=== PATIENT | female | born 1945 | race Caucasian/White ===

== ENCOUNTER 2019-12-26 22:27 | Inpatient (IN) | payer MEDICARE, SELFPAY ==
--- NOTE | ~2019-12-26 | XR_ITS ---
EXAMINATION: XR chest 2V DATE: 12/29/2019 10:52 INDICATION: Pneumonia TECHNIQUE: frontal and lateral views of the chest were obtained. COMPARISON: Chest radiograph dated 12/26/[address] dated 12/27/2019 FINDINGS: Bronchial wall thickening and mild opacities at the posterior lung bases. No pulmonary edema, pleural effusion or pneumothorax. The cardiomediastinal silhouette is normal. Atherosclerotic aorta. Mild th oracic kyphosis with chronic mild anterior wedging of a few mid thoracic vertebral bodies. IMPRESSION: 1. Bronchial wall thickening and mild opacities in the posterior lower lung zones consistent with pne umonia. Reviewed, dictated and finalized at location A. IMPRESSION: 1. Bronchial wall thickening and mild opacities in the posterior lower lung zon es consistent with pneumonia.
--- NOTE | ~2019-12-26 | XR_ITS ---
EXAMINATION: XR chest 1V portable DATE: 12/26/2019 23:35 INDICATION: Shortness of breath. Cough. TECHNIQUE: A single frontal view of the chest was obtained. COMPARISON: Chest 2 views 06/15/2012, chest CT 02/21/2013 FINDINGS: The patient is rotated to her left. Equipment overlies the left upper chest. Calcified left lung nodules are consistent with old granulomatous disease. There is mild atelectasis in left lower lung zone. No pleural effusion or pneumothorax. The heart size is normal. IMPRESSION: 1. Mild atelectasis in left lower lung zone. Reviewed, dictated and finalized at location A.
--- NOTE | ~2019-12-26 | CT_ITS ---
EXAMINATION: CT chest wo con DATE: 12/27/2019 01:33 INDICATION: Shortness of breath and cough TECHNIQUE: Computed tomography (CT) of the chest was performed without intravenous contrast. The dose -length product (DLP) was 150.74 mGy-cm. Automated exposure control and iterative reconstruction tech [employer] were employed. COMPARISON: 08/06/2012 FINDINGS: There are subtle patchy bilateral airspace opacities, particularly in the lower lobes. A fe w areas of bronchial wall thickening with groundglass opacity are present in the upper lobes. There i s a 5 mm groundglass nodule of the lingula. There is mild emphysema. No pleural effusion or pneumotho rax is identified. Calcified pulmonary nodules and calcified bilateral hilar and mediastinal lymph no rj are consistent with old granulomatous disease. The heart size is normal. There is a small sliding hiatal hernia. Punctate calcifications in an otherwise normal spleen likely represent healed granulo matous disease. There is a stable 2.5 cm mass of the left adrenal gland containing macroscopic fat, c onsistent with a myelolipoma. IMPRESSION: 1. Patchy opacities of the lungs, likely infectious or inflammatory. Reviewed, dictated and finalized at location B.
[2019-12-26 22:34] VITALS: BP 153/54; PULSE 95; RESP 22; TEMP 36.8; O2SAT 88
--- NOTE | 2019-12-26 22:35 | ED.URI ---
HPI - URI/Sore Throat General Chief Complaint: Upper Respiratory Infection Stated Complaint: cough Time Seen by Provider: 12/26/19 22:33 Source: patient Mode of arrival: ambulatory Limitations: no limitations History of Present Illness HPI Narrative: Pt is a 74 y/o female, with a H/o COPD and pneumonia, who presents to the ED with c/o a cough that started yesterday. She reports associated SOB and back pain, but denies fever, nausea, dizziness, or weakness. She states that she has not been able to sleep at night. Pt denies being around anyone sick. She has been taking all of her medications. MD elicited complaint: cough Pertinent past history: pneumonia and COPD Onset (ago): day(s) (yesterday) Associated symptoms: shortness of breath and other (back pain) Related Data Home Medications Medication Instructions Recorded Confirmed amlodipine 5 mg PO HS 12/27/19 atorvastatin 10 mg PO HS 12/27/19 duloxetine 60 mg PO HS 12/27/19 isosorbide mononitrate 30 mg PO DAILY 12/27/19 levothyroxine 75 mcg PO DAILY 12/27/19 metoclopramide HCl 10 mg PO QAM AND QPM 12/27/19 mirabegron [Myrbetriq] 25 mg PO QAM 12/27/19 omeprazole 40 mg PO BID 12/27/19 propranolol 20 mg PO Q12H 12/27/19 sulfasalazine 1 g PO BID 12/27/19 tizanidine 4 - 8 mg PO Q8H PRN 12/27/19 trazodone 50 - 100 mg PO HS 12/27/19 Allergies Allergy/AdvReac Type Severity Reaction Status Date / Time levofloxacin Allergy Unknown Unknown Verified 12/26/19 23:16 morphine Allergy Unknown Hives Verified 12/26/19 23:16 Review of Systems Review of Systems: All systems reviewed & are unremarkable except as noted in HPI and below Constitutional: Constitutional: Denies fever(s) and Denies weakness Respiratory: Respiratory: Reports cough and Reports dyspnea Gastrointestinal: Gastrointestinal: Denies nausea Musculoskeletal: Musculoskeletal: Reports back pain Neurologic: Denies dizziness [facility] Past Medical History Medical History (Updated 12/27/19 @ 02:45 by Nadir Ricardo MD) Arthritis COPD (chronic obstructive pulmonary disease) Crohn's disease Depression GERD (gastroesophageal reflux disease) Lupus Pneumonia Shoulder fracture, left Surgical History Surgical History (Updated 12/26/19 @ 22:48 by Tamera Rojas) History of carpal tunnel release History of lumbar fusion Hx of fusion of cervical spine Family History Family History (Updated 06/01/14 @ 07:13 by DOCTOR UNKNOWN) Other Diabetes mellitus Family history of cardiovascular disease Family history of malignant melanoma Family history of malignant neoplasm Social History Social History Alcohol intake: never Gender identity (if verbalized by the patient): Female Exam Const: General: no acute distress, ill appearing acutely and chronically and other (elderly) HENMT: Mouth: Yes lip normal and Yes moist mucous membranes Eyes: Conjunctivae: conjunctivae normal Pupils: Equal, round and reactive pupils present Resp: Effort & Inspection: tachypneic Auscultation: rhonchi (lt) and diminished lung sounds diffuse Cardio: Rate: tachycardic Rhythm: regular rhythm Heart sounds: no murmurs GI: GI Palp: No abdominal tenderness and Yes Soft to palpation Auscultation: normal bowel sounds Back/Spine/Pelvis: Back: other (full ROM) Skin: General skin exam: normal color, dry skin and other (warm) Neuro: General: patient oriented x3 (alert) Speech: normal speech Extrem: General: full ROM and no edema Psych: Mental Status: mental status grossly normal Affect: normal affect Course Vital Signs Vital signs: Vital Signs Temperature 36.8 C 12/26/19 22:34 Pulse Rate 95 12/26/19 22:34 Respiratory Rate 22 H 12/26/19 22:34 Blood Pressure 153/54 H 12/26/19 22:34 Pulse Oximetry 88 L 12/26/19 22:34 Temperature 36.8 C 12/26/19 22:34 Pulse Rate 101 H 12/27/19 01:33 Respiratory Rate 26 H 12/27/19 01:00 Blood Pressure 155/74 H 12/27/19 01:33 Pulse
[2019-12-26 22:50] VITALS: O2SAT 97
[2019-12-26] MEDS: IPRATROPIUM BR 0.02% INH SOLN 0.5 MG/2.5 ML VIAL 1 MG INHALATION (22:56)
[2019-12-26] MEDS: ALBUTEROL SULFATE NEB 2.5 MG/0.5 ML INH 10 MG INHALATION (22:56)
[2019-12-26] MEDS: SODIUM CHLORIDE 0.9% IV 500 ML 999 ML IV CONT (23:05)
[2019-12-26 23:10] VITALS: PULSE 94; RESP 28
[2019-12-26 23:15] VITALS: BP 126/75; PULSE 88; RESP 31; O2SAT 96
[2019-12-26 23:19] LABS: Base Excess ABG -1.7 mEq/l (+/-2.0); Fractional Inspired Oxygen 28 %; HCO3 ABG 23.6 mEq/l (22.0-26.0); Oxyhemoglobin 93.7 % THb (90.0-100.0); PCO2 ABG 41.8 mmHg (35.0-45.0); Total Hemoglobin 12.6 g/dL (12.0-18.0)
[2019-12-26 23:22] LABS: Device NASAL CANNULA; Modified Allen's Test Pass; Site Drawn LEFT RADIAL
[2019-12-26 23:30] VITALS: BP 129/76; PULSE 88; RESP 20; O2SAT 100
[2019-12-26 23:40] LABS: Basophils Absolute Auto 0.1 K/mm3 (0.0-0.1); Basophils Percent Auto 0.6 % (0.2-1.2); Eosinophils Percent Auto 0.1 % (0-4.4); Hematocrit 41.3 % (37.0-47.0); Hemoglobin 13.2 g/dL (12.0-15.0); Immature Granulocyte Absolute 0.06 K/mm3 (0.00-0.031); Immature Granulocyte Percent A 0.4 % (0-0.5); Lymphocytes Absolute Auto 0.54 K/mm3 (0.9-3.2); Lymphocytes Percent Auto 3.8 % (18.3-44.2); Mean Corpuscular Hemoglobin 31.4 pg (26-34); Mean Corpuscular Volume 98.1 fl (80-100); Monocytes Percent Auto 6.8 % (2.6-8.5); Neutrophils Absolute Auto 12.4 K/mm3 (1.3-6.7); Neutrophils Percent Auto 88.3 % (45.5-73.1); Platelet Count Result 197 k/mm3 (150-375); Red Blood Count 4.21 M/mm3 (4.2-5.4); Red Cell Distribution Width 13.2 % (11.5-14.5)
[2019-12-26 23:49] LABS: Alanine Aminotransferase 10 U/L (4-35); Albumin Level 4.3 g/dL (3.5-5.1); Alkaline Phosphatase 108 U/L (38-126); Aspartate Amino Transferase 22 U/L (14-36); Bilirubin,Total 0.8 mg/dL (0.2-1.3); Blood Urea Nitrogen 15 mg/dL (7-17); Carbon Dioxide 30 mmol/L (22-30); Chloride 99 mmol/L (98-107); Estimated CRCL calculation 39 ml/min; Estimated Glomerular Filt Rate 54; Glucose 102 mg/dL (65-105); Potassium 4.6 mmol/L (3.4-5.0); Sodium 133 mmol/L (137-145)
[2019-12-27] VITALS (17 sets, daily range): BP systolic 130–155; BP diastolic 40–74; PULSE 79–107; RESP 17–28; TEMP 36.7–37; O2SAT 87–98; BMI 24.5
[2019-12-27 00:02] LABS: INR 0.9; Prothrombin Time 11.4 Seconds (11.1-14.7)
[2019-12-27 00:03] LABS: Partial Thromboplastin Time 27.5 SECONDS (22.3-36.8)
[2019-12-27] MEDS: methylPREDNISolone SOD SUCC 125 MG VIAL IV PUSH (01:42)
--- NOTE | 2019-12-27 02:30 | PM.IMHP ---
H&P: HPI History of Present Illness Chief complaint: Cough for 2 days Narrative: Date and time of patient contact: 2019 at 2:30 a.m. Cristy Duckworth is a 74 year old female with a past medical history of lupus and COPD who presented to the ER that started 2 days ago. Was last hospitalized for respiratory symptoms over 2 years ago. She had a cough that started on December 24. Her cough is dry/nonproductive. She had progressive worsening shortness of breath. She also reported back pain is worse with inspiration. She denies any subjective fevers or chills. But when I am in the room patient refuses to take off her pants because she would be too cold. She has not been able to sleep at night due to her cough. She does have nebulizers at home but did not use them to relieve her symptoms. When she arrived to the ER the patient was hypoxic on room air and required as much as 4 L nasal cannula per ER report. She is now down to 2 L nasal cannula. She has not been around any ill contacts but she has been out of the house to do routine errands. She denies any nausea or vomiting. She does not think that she has had decreased appetite. She denies any diarrhea or changes in bowel habits. Nursing staff reports that patient has been up to the commode multiple times to urinate. While I was in the room the patient tried to use the bedside commode but was unable to urinate. The patient denies an actual diagnosis of restless leg syndrome but her legs do move constantly. She has also noted have a tremor of her hands which she reports is chronic. Review of Systems Review of Systems: Narrative: 12 systems were reviewed with pertinent positives and negatives per HPI. Except as documented in the HPI, all other systems were reviewed and are negative. [facility] Past Medical History Medical History (Updated 12/27/19 @ 05:04 by Elizabeth Santos DO) Arthritis COPD (chronic obstructive pulmonary disease) Depression GERD (gastroesophageal reflux disease) Kidney stones Pneumonia 2018 Shoulder fracture, left SLE (systemic lupus erythematosus related syndrome) On sulfasalazine Urge urinary incontinence Surgical History Surgical History (Updated 12/27/19 @ 04:42 by Elizabeth Santos DO) History of appendectomy History of bilateral carpal tunnel release History of carpal tunnel release History of left knee replacement History of lumbar fusion Hx of cholecystectomy Hx of fusion of cervical spine S/P cubital tunnel release Left Family History Family History (Updated 12/27/19 @ 04:45 by Elizabeth Santos DO) Mother Breast cancer BRCA gene positive Daughter Rheumatoid arthritis Cervical cancer Vitiligo Asthma Father Acute myocardial infarction Sibling Diabetes mellitus Sister Atrial fibrillation Brother Son Melanoma Social History Social History (Updated 12/27/19 @ 04:51 by Elizabeth Santos DO) Social History: Primary care physician: Dr. Jeremiah Kaur Code status: Full code Smoking packs per day: 1 Smoking cigarettes per day: 20.0 Years smoked: 40 Smoking pack-years: 40.00 Smoking status: Former smoker Tobacco type: cigarettes Second hand tobacco smoke exposure: Yes Smoking end date: 10/05/09 Alcohol intake: never Substance use: never Living arrangements: with family Additional living arrangements comments: The patient lives in [place] with her . She ambulates with a cane. 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 Gender identity (if verbalized by the patient): Female Spiritual care concerns: No Agree to blood products: No Meds Home Medications and Allergies Home Medications Medication Instructions Recorded Confirmed Type amlodipine 5 mg PO DAILY 12/27/19 12/27/19 History atorvastatin 10 mg PO DAILY 12/27/19 12/27/19 History duloxetine 60 mg PO DAILY 12/27/19
--- NOTE | 2019-12-27 03:52 | ADMGEN ---
This patient, Cristy Duckworth, was admitted to 3 Med Surg Room 310-01. Patient/family oriented to hospital policies and general routines including ID bracelet, bed and alarms, visiting hours, pain management, procedures, bathroom and other care routines, personal items, smoking policy, room service/diet, and visiting hours. Valuables list has been completed. Information on how to activate the Rapid Response Team has been discussed. Patient/Family are encouraged to report perceived risks to care and to ask questions if they do not understand what they are told or what they should do.
--- NOTE | 2019-12-27 03:53 | PCRCNOTE ---
RT was unable to rerun abg sample do to <.5cc; pt pulled arm away and would not allow RT to attempt another draw; charge nurse was notified and Dr. Ricardo was made aware
[2019-12-27] MEDS: LACTATED RINGERS 1,000 ML 75 ML IV CONT (04:26)
[2019-12-27] MEDS: LEVOTHYROXINE SODIUM 75 MCG TABLET PO (06:37)
[2019-12-27 08:12] LABS: pH ABG 7.369 (7.350-7.450)
[2019-12-27] MEDS: LEVALBUTEROL HFA (*SP) 15 GM INHALER 6 PUFF INHALATION ×3 (09:21→20:30)
[2019-12-27] MEDS: ENOXAPARIN 40 MG/0.4 ML SYRINGE SUB-Q (10:13)
[2019-12-27] MEDS: PANTOPRAZOLE 40 MG TABLET PO ×2 (10:13→16:59)
[2019-12-27] MEDS: MIRABEGRON 25 MG ER TABLET PO (10:14)
[2019-12-27] MEDS: PROPRANOLOL HCL 20 MG TABLET PO ×2 (10:14→16:59)
[2019-12-27] MEDS: SULFASALAZINE 500 MG TABLET 1000 MG PO ×2 (10:15→17:00)
[2019-12-27] MEDS: ATORVASTATIN 10 MG TABLET PO (10:15)
[2019-12-27] MEDS: DULOXETINE 60 MG CAPSULE.DR PO (10:15)
[2019-12-27] MEDS: METOCLOPRAMIDE HCL 10 MG TABLET PO ×2 (10:15→16:59)
[2019-12-27] MEDS: ISOSORBIDE MONONITRATE 30 MG TAB.ER.24H PO (10:15)
[2019-12-27] MEDS: AMLODIPINE BESYLATE 5 MG TABLET PO (10:16)
--- NOTE | 2019-12-27 15:52 | PM.IMPN ---
Progress Note: A&P Assessment and Plan (1) Acute respiratory failure with hypoxia: Code(s): J96.01 - Acute respiratory failure with hypoxia Status: Acute Assessment and Plan: Likely due to underlying pneumonia. Continue antibiotic therapy with Rocephin and azithromycin. Wean oxygen as tolerated. 12/27/19 15:52 Patient is 74-year-old female with history of COPD Lupus presented emergency department with a complaint persistent cough and shortness of breath patient was hypoxic upon arrival however patient has not had a fever, patient lives with and states see has not been out of house for last 3 weeks except visiting her daughter, about a week ago her granddaughter came to visit her from [place], and there are no other upper respiratory reported by the granddaughter, chest x-ray shows pneumonia patient started azithromycin and Rocephin will add vancomycin, also given patient history and immune compromise with lupus and suspect patient may have Covid 19, patient is placed under isolation and precaution a taken to minimize exposure, to further evaluate test Covid 19 is ordered and sent to [facility] therefore it is canceled in the hospital orders. Will follow-up. (2) Pneumonia: Code(s): J18.9 - Pneumonia, unspecified organism Status: Acute Assessment and Plan: Continue empiric antibiotic therapy. COVID19 testing pending (3) COPD exacerbation: Code(s): J44.1 - Chronic obstructive pulmonary disease with (acute) exacerbation Status: Acute Assessment and Plan: Given the concern for possible COVID19 infection scheduled nebulizers have been discontinued. Scheduled inhalers with Xopenex and Atrovent been ordered. The patient does not have significant wheezing at this time. Like to hold off on further steroid administration and monitor. Subjective Date/time seen: 12/27/19 15:52 Patient is 74-year-old female with history of COPD Lupus presented emergency department with a complaint persistent cough and shortness of breath patient was hypoxic upon arrival however patient has not had a fever, patient lives with and states see has not been out of house for last 3 weeks except visiting her daughter, about a week ago her granddaughter came to visit her from [place], and there are no other upper respiratory reported by the granddaughter, chest x-ray shows pneumonia patient started azithromycin and Rocephin will add vancomycin, also given patient history and immune compromise with lupus and suspect patient may have Covid 19, patient is placed under isolation and precaution a taken to minimize exposure, to further evaluate test Covid 19 is ordered and sent to [facility] therefore it is canceled in the hospital orders. Will follow-up. Review of Systems Review of Systems: All systems reviewed & are unremarkable except as noted in HPI and below Exam Narrative: Exam Narrative: Elderly frail Const: General: comfortable and no acute distress HENMT: General nose exam: Normal nares present Mouth: Yes moist mucous membranes Eyes: General: appearance normal, both eyes and all related structures Sclera: sclerae normal Neck: Neck: supple Resp: Other: Bilateral poor air entry with rhonchi Cardio: Rate: regular rate Rhythm: regular rhythm GI: Auscultation: normal bowel sounds Skin: General skin exam: normal color Neuro: Speech: normal speech Sensory Exam: normal sensation Extrem: General: normal to inspection Psych: Affect: Anxious affect present Objective Data Vital Signs Vital Signs: Vital Signs - 24 hr 12/26/19 22:34 12/26/19 22:50 12/26/19 23:10 Temperature 98.3 F Pulse Rate 95 94 Respiratory Rate 22 H 28 H Blood Pressure 153/54 H Pulse Oximetry 88 L 97 12/26/19 23:15 12/26/19 23:30 12/27/19 00:11 Temperature Pulse Rate 88 88 86 Respiratory Rate 31 H 20 28 H Blood Pressure 126/75 129/76 Pulse Oximetry 96 100 12/27/19 00:40 12/27/19 01:00 12/27/19 0
[2019-12-28] VITALS (15 sets, daily range): BP systolic 132–144; BP diastolic 46–72; PULSE 80–89; RESP 20–22; TEMP 36.8–37.3; O2SAT 90–96
[2019-12-28] MEDS: LACTATED RINGERS 1,000 ML 75 ML IV CONT ×2 (01:17→21:01)
[2019-12-28] MEDS: LEVALBUTEROL HFA (*SP) 15 GM INHALER 6 PUFF INHALATION ×4 (02:00→19:45)
[2019-12-28 06:21] LABS: Hematocrit 34.4 % (37.0-47.0); Hemoglobin 11.3 g/dL (12.0-15.0); Mean Corpuscular HGB Conc 32.8 g/dl (32-36); Mean Corpuscular Hemoglobin 31.6 pg (26-34); Mean Corpuscular Volume 96.1 fl (80-100); Mean Platelet Volume 9.7 fl (7.4-10.4); Platelet Count Result 199 k/mm3 (150-375); Red Blood Count 3.58 M/mm3 (4.2-5.4); White Blood Count 13.9 K/mm3 (4.5-10.0)
[2019-12-28 06:40] LABS: Blood Urea Nitrogen 14 mg/dL (7-17); Calcium 9.1 mg/dL (8.4-10.2); Carbon Dioxide 29 mmol/L (22-30); Chloride 100 mmol/L (98-107); Estimated CRCL calculation 53 ml/min; Estimated Glomerular Filt Rate > 60; Glucose 103 mg/dL (65-105); Sodium 133 mmol/L (137-145)
[2019-12-28] MEDS: LEVOTHYROXINE SODIUM 75 MCG TABLET PO (06:49)
[2019-12-28] MEDS: METOCLOPRAMIDE HCL 10 MG TABLET PO ×2 (09:16→18:13)
[2019-12-28] MEDS: DULOXETINE 60 MG CAPSULE.DR PO (09:16)
[2019-12-28] MEDS: ATORVASTATIN 10 MG TABLET PO (09:16)
[2019-12-28] MEDS: PROPRANOLOL HCL 20 MG TABLET PO ×2 (09:16→18:13)
[2019-12-28] MEDS: MIRABEGRON 25 MG ER TABLET PO (09:17)
[2019-12-28] MEDS: AMLODIPINE BESYLATE 5 MG TABLET PO (09:17)
[2019-12-28] MEDS: SULFASALAZINE 500 MG TABLET 1000 MG PO ×2 (09:17→18:12)
[2019-12-28] MEDS: ENOXAPARIN 40 MG/0.4 ML SYRINGE SUB-Q (09:17)
[2019-12-28] MEDS: ISOSORBIDE MONONITRATE 30 MG TAB.ER.24H PO (09:17)
[2019-12-28] MEDS: PANTOPRAZOLE 40 MG TABLET PO ×2 (09:17→18:12)
--- NOTE | 2019-12-28 15:17 | PC.NURSE ---
Received fax from [facility] that patient's COVID [address] is negative[address] Ospina.
--- NOTE | 2019-12-28 16:08 | PM.IMPN ---
Progress Note: A&P Assessment and Plan (1) Acute respiratory failure with hypoxia: Code(s): J96.01 - Acute respiratory failure with hypoxia Status: Acute Assessment and Plan: 12/28/19 16:08 Likely due to underlying pneumonia. Continue antibiotic therapy with Rocephin and azithromycin. Wean oxygen as tolerated. 12/27/19 15:52 Patient is 74-year-old female with history of COPD Lupus presented emergency department with a complaint persistent cough and shortness of breath patient was hypoxic upon arrival however patient has not had a fever, patient lives with and states see has not been out of house for last 3 weeks except visiting her daughter, about a week ago her granddaughter came to visit her from [place], and there are no other upper respiratory reported by the granddaughter, chest x-ray shows pneumonia patient started azithromycin and Rocephin will add vancomycin, also given patient history and immune compromise with lupus and suspect patient may have Covid 19, patient is placed under isolation and precaution a taken to minimize exposure, to further evaluate test Covid 19 is ordered and sent to [facility] therefore it is canceled in the hospital orders. Will follow-up. Today I was informed that patient is negative for Covid 19, patient is feeling better coughing is improved denies any fever or chills still feels tired and fatigued, repeat chest x-ray tomorrow and further recommendation to follow (2) Pneumonia: Code(s): J18.9 - Pneumonia, unspecified organism Status: Acute Assessment and Plan: Continue empiric antibiotic therapy. COVID19 testing pending (3) COPD exacerbation: Code(s): J44.1 - Chronic obstructive pulmonary disease with (acute) exacerbation Status: Acute Assessment and Plan: Given the concern for possible COVID19 infection scheduled nebulizers have been discontinued. Scheduled inhalers with Xopenex and Atrovent been ordered. The patient does not have significant wheezing at this time. Like to hold off on further steroid administration and monitor. Subjective Date/time seen: 12/28/19 16:08 Likely due to underlying pneumonia. Continue antibiotic therapy with Rocephin and azithromycin. Wean oxygen as tolerated. 12/27/19 15:52 Patient is 74-year-old female with history of COPD Lupus presented emergency department with a complaint persistent cough and shortness of breath patient was hypoxic upon arrival however patient has not had a fever, patient lives with and states see has not been out of house for last 3 weeks except visiting her daughter, about a week ago her granddaughter came to visit her from [place], and there are no other upper respiratory reported by the granddaughter, chest x-ray shows pneumonia patient started azithromycin and Rocephin will add vancomycin, also given patient history and immune compromise with lupus and suspect patient may have Covid 19, patient is placed under isolation and precaution a taken to minimize exposure, to further evaluate test Covid 19 is ordered and sent to [facility] therefore it is canceled in the hospital orders. Will follow-up. Today I was informed that patient is negative for Covid 19, patient is feeling better coughing is improved denies any fever or chills still feels tired and fatigued Review of Systems Review of Systems: All systems reviewed & are unremarkable except as noted in HPI and below Exam Narrative: Exam Narrative: Elderly frail Const: General: comfortable and no acute distress HENMT: General nose exam: Normal nares present Mouth: Yes moist mucous membranes Eyes: General: appearance normal, both eyes and all related structures Sclera: sclerae normal Neck: Neck: supple Resp: Other: Bilateral poor air entry with rhonchi Cardio: Rate: regular rate Rhythm: regular rhythm GI: Auscultation: normal bowel sounds Skin: General skin exam: normal color Neuro: Speech: normal speech Sensory Exam: norm
[2019-12-29] VITALS (12 sets, daily range): BP systolic 124–138; BP diastolic 45–56; PULSE 80–89; RESP 16–20; TEMP 36.8–37.1; O2SAT 90–92
[2019-12-29] MEDS: LEVALBUTEROL HFA (*SP) 15 GM INHALER 6 PUFF INHALATION ×4 (01:57→20:20)
[2019-12-29 06:11] LABS: Hematocrit 35.8 % (37.0-47.0); Hemoglobin 11.5 g/dL (12.0-15.0); Mean Corpuscular HGB Conc 32.1 g/dl (32-36); Mean Corpuscular Hemoglobin 31.6 pg (26-34); Mean Corpuscular Volume 98.4 fl (80-100); Mean Platelet Volume 9.5 fl (7.4-10.4); Platelet Count Result 211 k/mm3 (150-375); Red Blood Count 3.64 M/mm3 (4.2-5.4); Red Cell Distribution Width 13.2 % (11.5-14.5); White Blood Count 11.7 K/mm3 (4.5-10.0)
[2019-12-29 06:21] LABS: Blood Urea Nitrogen 11 mg/dL (7-17); Calcium 9.2 mg/dL (8.4-10.2); Carbon Dioxide 33 mmol/L (22-30); Chloride 100 mmol/L (98-107); Estimated CRCL calculation 47 ml/min; Estimated Glomerular Filt Rate > 60; Glucose 102 mg/dL (65-105); Sodium 135 mmol/L (137-145)
[2019-12-29] MEDS: LEVOTHYROXINE SODIUM 75 MCG TABLET PO (06:45)
[2019-12-29] MEDS: SULFASALAZINE 500 MG TABLET 1000 MG PO ×2 (08:32→16:06)
[2019-12-29] MEDS: ENOXAPARIN 40 MG/0.4 ML SYRINGE SUB-Q (08:32)
[2019-12-29] MEDS: ATORVASTATIN 10 MG TABLET PO (08:32)
[2019-12-29] MEDS: PANTOPRAZOLE 40 MG TABLET PO ×2 (08:33→16:06)
[2019-12-29] MEDS: PROPRANOLOL HCL 20 MG TABLET PO ×2 (08:34→16:05)
[2019-12-29] MEDS: MIRABEGRON 25 MG ER TABLET PO (08:34)
[2019-12-29] MEDS: DULOXETINE 60 MG CAPSULE.DR PO (08:34)
[2019-12-29] MEDS: AMLODIPINE BESYLATE 5 MG TABLET PO (08:35)
[2019-12-29] MEDS: ISOSORBIDE MONONITRATE 30 MG TAB.ER.24H PO (08:35)
[2019-12-29] MEDS: METOCLOPRAMIDE HCL 10 MG TABLET PO ×2 (08:35→16:05)
--- NOTE | 2019-12-29 11:41 | PM.IMPN ---
Progress Note: A&P Assessment and Plan (1) Acute respiratory failure with hypoxia: Code(s): J96.01 - Acute respiratory failure with hypoxia Status: Acute Assessment and Plan: 12/29/19 11:43 Likely due to underlying pneumonia. Continue antibiotic therapy with Rocephin and azithromycin. Wean oxygen as tolerated. Patient is 74-year-old female with history of COPD Lupus presented emergency department with a complaint persistent cough and shortness of breath patient was hypoxic upon arrival however patient has not had a fever, patient lives with and states see has not been out of house for last 3 weeks except visiting her daughter, about a week ago her granddaughter came to visit her from [place], and there are no other upper respiratory reported by the granddaughter, chest x-ray shows pneumonia patient started azithromycin and Rocephin will add vancomycin, also given patient history and immune compromise with lupus and suspect patient may have Covid 19, patient is placed under isolation and precaution a taken to minimize exposure, to further evaluate test Covid 19 is ordered and sent to [facility] therefore it is canceled in the hospital orders. Will follow-up. on 12/27 I was informed that patient is negative for Covid 19, Today repeat CXR persistent pneumonia, however patient is feeling better coughing is improved denies any fever or chills still feels tired and fatigued, will continue present management and repeat chest x-ray in 2 days, will have a PT OT evaluate the patient (2) Pneumonia: Code(s): J18.9 - Pneumonia, unspecified organism Status: Acute Assessment and Plan: Continue empiric antibiotic therapy. COVID19 testing is negative (3) COPD exacerbation: Code(s): J44.1 - Chronic obstructive pulmonary disease with (acute) exacerbation Status: Acute Assessment and Plan: Given the concern for possible COVID19 infection scheduled nebulizers have been discontinued. Scheduled inhalers with Xopenex and Atrovent been ordered. The patient does not have significant wheezing at this time. Like to hold off on further steroid administration and monitor. Subjective Date/time seen: 12/29/19 11:43 Likely due to underlying pneumonia. Continue antibiotic therapy with Rocephin and azithromycin. Wean oxygen as tolerated. Patient is 74-year-old female with history of COPD Lupus presented emergency department with a complaint persistent cough and shortness of breath patient was hypoxic upon arrival however patient has not had a fever, patient lives with and states see has not been out of house for last 3 weeks except visiting her daughter, about a week ago her granddaughter came to visit her from [place], and there are no other upper respiratory reported by the granddaughter, chest x-ray shows pneumonia patient started azithromycin and Rocephin will add vancomycin, also given patient history and immune compromise with lupus and suspect patient may have Covid 19, patient is placed under isolation and precaution a taken to minimize exposure, to further evaluate test Covid 19 is ordered and sent to [facility] therefore it is canceled in the hospital orders. Will follow-up. on 12/27 I was informed that patient is negative for Covid 19, Today repeat CXR persistent pneumonia, however patient is feeling better coughing is improved denies any fever or chills still feels tired and fatigued, will continue present management and repeat chest x-ray in 2 days, will have a PT OT evaluate the patient Review of Systems Review of Systems: All systems reviewed & are unremarkable except as noted in HPI and below Exam Narrative: Exam Narrative: Elderly frail Const: General: comfortable and no acute distress HENMT: General nose exam: Normal nares present Mouth: Yes moist mucous membranes Eyes: General: appearance normal, both eyes and all related structures Sclera: sclerae normal Neck: Neck: supple Resp: Other: [place]
[2019-12-29] MEDS: BUDESONIDE RESPULE NEB 0.5 MG/2 ML AMP INHALATION (20:19)
--- NOTE | 2019-12-30 01:45 | PC.NURSE ---
Patient IV infiltrated at end of Rocephin, explained to patient the need to restart another IV, pt refusing to have a new IV. Explained the need to complete ATB as ordered, patient continues to refuse IV.
[2019-12-30] MEDS: LEVALBUTEROL HFA (*SP) 15 GM INHALER 6 PUFF INHALATION ×2 (02:02→08:33)
[2019-12-30 06:00] VITALS: BP 153/62; PULSE 88; RESP 18; TEMP 36.8; O2SAT 90
[2019-12-30] MEDS: LEVOTHYROXINE SODIUM 75 MCG TABLET PO (06:09)
[2019-12-30 06:17] LABS: Hematocrit 35.4 % (37.0-47.0); Hemoglobin 11.6 g/dL (12.0-15.0); Mean Corpuscular HGB Conc 32.8 g/dl (32-36); Mean Corpuscular Hemoglobin 31.3 pg (26-34); Mean Corpuscular Volume 95.4 fl (80-100); Mean Platelet Volume 9.6 fl (7.4-10.4); Platelet Count Result 241 k/mm3 (150-375); Red Blood Count 3.71 M/mm3 (4.2-5.4); Red Cell Distribution Width 12.7 % (11.5-14.5)
[2019-12-30 06:31] LABS: Blood Urea Nitrogen 10 mg/dL (7-17); Calcium 9.1 mg/dL (8.4-10.2); Carbon Dioxide 29 mmol/L (22-30); Chloride 100 mmol/L (98-107); Estimated CRCL calculation 47 ml/min; Estimated Glomerular Filt Rate > 60; Glucose 94 mg/dL (65-105); Potassium 3.8 mmol/L (3.4-5.0); Sodium 135 mmol/L (137-145)
[2019-12-30] MEDS: ENOXAPARIN 40 MG/0.4 ML SYRINGE SUB-Q (08:20)
[2019-12-30] MEDS: AMLODIPINE BESYLATE 5 MG TABLET PO (08:20)
[2019-12-30] MEDS: ISOSORBIDE MONONITRATE 30 MG TAB.ER.24H PO (08:20)
[2019-12-30] MEDS: SULFASALAZINE 500 MG TABLET 1000 MG PO (08:20)
[2019-12-30] MEDS: METOCLOPRAMIDE HCL 10 MG TABLET PO (08:20)
[2019-12-30] MEDS: ATORVASTATIN 10 MG TABLET PO (08:20)
[2019-12-30] MEDS: MIRABEGRON 25 MG ER TABLET PO (08:20)
[2019-12-30] MEDS: DULOXETINE 60 MG CAPSULE.DR PO (08:20)
[2019-12-30] MEDS: PANTOPRAZOLE 40 MG TABLET PO (08:20)
[2019-12-30 08:22] VITALS: PULSE 84
[2019-12-30] MEDS: PROPRANOLOL HCL 20 MG TABLET PO (08:22)
[2019-12-30] MEDS: BUDESONIDE RESPULE NEB 0.5 MG/2 ML AMP INHALATION (08:31)
[2019-12-30 08:34] VITALS: PULSE 92; RESP 16; O2SAT 95
[2019-12-30] MEDS: DOXYCYCLINE HYCLATE 100 MG TABLET PO (08:37)
[2019-12-30 08:38] VITALS: PULSE 93; RESP 16
--- NOTE | 2019-12-30 09:47 | PCPTNOTE ---
Patient declined PT this morning. Patient states that she will discharged home today. Home Exercise Program reviewed and copy issued to patient.
--- NOTE | 2019-12-30 17:18 | PM.DS ---
DS: Diagnosis Admitting Diagnosis Admitting Diagnosis: Acute respiratory failure with hypoxia Discharge Diagnosis (1) Acute respiratory failure with hypoxia: Code(s): J96.01 - Acute respiratory failure with hypoxia Status: Acute Assessment and Plan: due to underlying pneumonia. O2 sat quickly came up after treatment for pneumonia and remained 90-94% on room air before discharge. Patient is 74-year-old female with history of COPD Lupus presented emergency department with a complaint persistent cough and shortness of breath patient was hypoxic upon arrival however patient has not had a fever, patient lives with with no recent travel. negative for Covid 19, chest x-ray revealed minimal infiltrate best seen on lateral view and more prominent on CT scan (2) Pneumonia: Code(s): J18.9 - Pneumonia, unspecified organism Status: Acute Assessment and Plan: As above. Received 3 days of IV antibiotics and will receive 4 days total of Levaquin 500 daily with doxycycline 100 b.i.d. to cover for both staph and strep , 7 days of treatment total (3) COPD exacerbation: Code(s): J44.1 - Chronic obstructive pulmonary disease with (acute) exacerbation Status: Acute Assessment and Plan: Given the concern for possible COVID19 infection scheduled nebulizers were discontinued. Scheduled inhalers with Xopenex and Atrovent been ordered. The patient did not have significant wheezing at this time. Steroids were not continued either. . (4) Hypertension: Code(s): I10 - Essential (primary) hypertension Status: Acute Assessment and Plan: Blood pressure remained well controlled and she will continue your her amlodipine and propanolol on discharge DS: Summary Hospital Course Hospital Course: 74-year-old hypertensive white female with history of lupus admitted with increasing shortness of breath. Found to have acute respiratory failure with hypoxia secondary to pneumonia. Chest x-ray showed minimal lower lobe infiltrates which were borne out by CT scan. Treated with ceftriaxone, azithromycin, and vancomycin for 3 days while here and discharged on Levaquin 500 daily for 4 days with doxycycline 100 b.i.d.. At the time of discharge he was up and about feeling quite well with no shortness of breath and cough had subsided She will follow-up with Dr. lilly within next 2 weeks and probable follow-up chest x-ray than Time Spent with Patient Time attestation: Total time spent providing and/or coordinating discharge services: 35 minutes Exam Narrative: Exam Narrative: Condition on discharge Blood pressure 150/62 pulse is 84 respirations 18 per minute saturating 92% on room air Lungs were clear with no areas of consolidation or wheezing, distant breath sounds CV regular rate rhythm no murmur Abdomen is soft nontender Extremities without edema good distal pulses DS: Data Data Completed and Pending Labs on day of discharge: Labs from last 24 hours 12/30/19 12/30/19 05:46 05:46 WBC 9.0 RBC 3.71 L Hgb 11.6 L Hct 35.4 L MCV 95.4 MCH 31.3 MCHC 32.8 RDW 12.7 Plt Count 241 MPV 9.6 Sodium 135 L Potassium 3.8 Chloride 100 Carbon Dioxide 29 BUN 10 Creatinine 0.80 Estim Creat Clear Calc 47 Estimated GFR > 60 Glucose 94 Calcium 9.1 Preliminary micro results at discharge 12/26/19 23:45 Blood Culture - Preliminary Blood 12/26/19 23:45 Blood Culture - Preliminary Blood Discharge Plan Discharge Attending physician on discharge: Abdullahi Wolfe Discharging Clinician: Abdullahi Wolfe Patient Disposition: Home, Self-Care Activity: as tolerated Diet: low sodium Discharge Instructions: Follow up with Primary care provider in 1-2 weeks. Patient Instructions: Antibiotic Form, Hypoxia (GEN), Acute Respiratory Failure (GEN) Stand Alone Forms: General Discharge Information Follow-up/Referrals: Stephanie
== END 2019-12-30 11:15 | disposition home or self-care (01) | DRG 193 ==
LOC: ANHED 22:52 → ANH3MEDSUR 12-27 04:08
PROVIDERS: Family Medicine; Admitting Provider Internal Medicine; Emergency Provider Emergency Medicine; PCP Family Medicine; Visit Provider Internal Medicine
DX: J18.9 Pneumonia, unspecified organism (principal); J96.01 Acute respiratory failure with hypoxia; J44.0 Chronic obstructive pulmonary disease with (acute) lower respiratory infection; J44.1 Chronic obstructive pulmonary disease with (acute) exacerbation; K50.90 Crohn's disease, unspecified, without complications; M19.90 Unspecified osteoarthritis, unspecified site; K21.9 Gastro-esophageal reflux disease without esophagitis; M32.9 Systemic lupus erythematosus, unspecified; F32.9 Major depressive disorder, single episode, unspecified; N39.41 Urge incontinence; Z96.652 Presence of left artificial knee joint; Z98.1 Arthrodesis status; Z90.49 Acquired absence of other specified parts of digestive tract; Z87.891 Personal history of nicotine dependence; Z20.828 Contact with and (suspected) exposure to other viral communicable diseases
CPT/HCPCS: 36415; 36600; 71045; 71046; 71250; 80048; 80053; 82805; 83605; 85025; 85027; 85610; 85730; 87040; 87252; 87804; 94640; 96374; 97161; 99291; A9270; J0456; J0696; J1650; J2930; J3370; J7040; J7120

== ENCOUNTER → 2021-02-02 06:59 | Outpatient (CLI) | payer MEDICARE, SELFPAY ==
[2021-02-02 19:16] LABS: SARS-CoV-2 RNA PCR Negative
== END ==
PROVIDERS: PCP Family Medicine; Visit Provider Family Medicine
DX: Z20.822 Contact with and (suspected) exposure to COVID-19 (principal)
CPT/HCPCS: C9803; U0003; U0005

== ENCOUNTER 2022-08-22 15:08 | Emergency (ER) | payer MEDICARE, MEDICAID, SELFPAY ==
--- NOTE | ~2022-08-22 | XR_ITS ---
XR forearm RT 2V DATE: 08/22/2022 15:51 INDICATION: Fall. Injury. Posterior pain, abrasion TECHNIQUE: AP and lateral views COMPARISON: None FINDINGS: No fracture or dislocation, periosteal reaction or bone destruction. Normal alignment at th e elbow and wrist joints. No radiopaque foreign body or subcutaneous emphysema is noted. IMPRESSION: No fracture or dislocation or radiopaque foreign body Reviewed, dictated and finalized at location B. 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
--- NOTE | ~2022-08-22 | XR_ITS ---
XR shoulder RT min 2V DATE: 08/22/2022 15:51 INDICATION: Fall, injury, pain with movement TECHNIQUE: 4 views COMPARISON: None FINDINGS: There is a linear oblique minimally inferiorly does press fracture of the lateral aspect of the right clavicular shaft. Alignment is preserved at the acromioclavicular and glenohumeral joints. No other fracture or dislocation is detected. Diffuse osteopenia. IMPRESSION: Linear oblique minimally inferiorly displaced right very lateral clavicular shaft fractur e Reviewed, dictated and finalized at location B. OR PODIATRIC MEDICINE IMPRESSION: Linear oblique minimally inferiorly displaced right very lateral cl avicular shaft fracture
[2022-08-22 15:11] VITALS: BP 135/51; PULSE 77; RESP 16; TEMP 37.2; O2SAT 95
[2022-08-22 16:00] VITALS: PULSE 82; RESP 16; O2SAT 98
--- NOTE | 2022-08-22 16:48 | ED.FALL ---
HPI - Fall General Chief Complaint: Fall Stated Complaint: R shoulder injury Time Seen by Provider: 08/22/22 15:44 History of Present Illness HPI Narrative: Patient is a 77-year-old female who presents ER with pain to the right upper extremity. She was performing a transfer to a shelter when she fell onto the right side. She did not strike her head or lose consciousness. She has pain in her right shoulder and her right elbow. No numbness or tingling. She reports she suffered a cut to her elbow but it has been dressed and she does not want it uncovered. Related Data Home Medications Medication Instructions Recorded Confirmed amlodipine 5 mg tablet 5 mg PO DAILY 12/27/19 12/27/19 atorvastatin 10 mg tablet 10 mg PO DAILY 12/27/19 12/27/19 duloxetine 60 mg capsule,delayed 60 mg PO DAILY 12/27/19 12/27/19 release isosorbide mononitrate 30 mg 30 mg PO DAILY 12/27/19 12/27/19 tablet,extended release 24 hr levothyroxine 75 mcg tablet 75 mcg PO DAILY 12/27/19 12/27/19 metoclopramide HCl 10 mg tablet 10 mg PO BID 12/27/19 12/27/19 mirabegron 25 mg tablet,extended 25 mg PO DAILY 12/27/19 12/27/19 release 24 hr (Myrbetriq) omeprazole 40 mg capsule,delayed 40 mg PO BID 12/27/19 12/27/19 release propranolol 20 mg tablet 20 mg PO BID 12/27/19 12/27/19 sulfasalazine 500 mg 1,000 mg PO BID 12/27/19 12/27/19 tablet,delayed release tizanidine 4 mg tablet 4 - 8 mg PO Q8H PRN Cramps 12/27/19 12/27/19 trazodone 50 mg tablet 50 - 100 mg PO HS PRN Insomnia 12/27/19 12/27/19 Allergies Allergy/AdvReac Type Severity Reaction Status Date / Time levofloxacin Allergy Unknown Insomnia Verified 08/22/22 15:26 morphine Allergy Unknown Hives Verified 08/22/22 15:26 Review of Systems Constitutional: Constitutional: Denies chills and Denies fever(s) Musculoskeletal: Musculoskeletal: Denies myalgias, Reports arthralgias and Denies joint swelling Integumentary/Breasts: Skin/Breast: Denies erythema and Denies rash Comments: Right elbow cut Neurologic: Denies syncope, Denies headache(s), Denies focal weakness and Denies numbness PMF Past Medical History Medical History (Updated 08/22/22 @ 17:08 by Buck Mann MD) Arthritis COPD (chronic obstructive pulmonary disease) Depression GERD (gastroesophageal reflux disease) Kidney stones Pneumonia 2018 Shoulder fracture, left SLE (systemic lupus erythematosus related syndrome) On sulfasalazine Urge urinary incontinence Surgical History Surgical History (Updated 12/27/19 @ 04:42 by Elizabeth Santos DO) History of appendectomy History of bilateral carpal tunnel release History of carpal tunnel release History of left knee replacement History of lumbar fusion Hx of cholecystectomy Hx of fusion of cervical spine S/P cubital tunnel release Left Family History Family History (Updated 12/27/19 @ 04:45 by Elizabeth Santos DO) Mother Breast cancer BRCA gene positive Daughter Rheumatoid arthritis Cervical cancer Vitiligo Asthma Father Acute myocardial infarction Sibling Diabetes mellitus Sister Atrial fibrillation Brother Son Melanoma Social History Social History (Updated 12/27/19 @ 04:51 by Elizabeth Santos DO) Social History: Primary care physician: Dr. Jeremiah Kaur Code status: Full code Smoking packs per day: 1 Smoking cigarettes per day: 20.0 Years smoked: 40 Smoking pack-years: 40.00 Smoking status: Former smoker Tobacco type: cigarettes Second hand tobacco smoke exposure: Yes Smoking end date: 10/05/09 Alcohol intake: never Substance use: never Additional living arrangements comments: The patient lives in [place] with her . She ambulates with a cane. 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 Gender identity (if verbalized by the patient): Female Spiritual care concerns: No Agree to blood products: No Exam Narrative: GENERA
[2022-08-22 17:14] VITALS: BP 140/55; PULSE 87; RESP 18; O2SAT 100
== END 2022-08-22 17:26 | disposition home or self-care (01) ==
PROVIDERS: Emergency Provider Emergency Medicine; PCP Family Medicine
DX: S42.031A Displaced fracture of lateral end of right clavicle, initial encounter for closed fracture (principal); J44.9 Chronic obstructive pulmonary disease, unspecified; Z87.891 Personal history of nicotine dependence; W19.XXXA Unspecified fall, initial encounter
CPT/HCPCS: 73030; 73090; 99284

== ENCOUNTER 2023-10-28 15:58 | Outpatient (CLI) | payer MEDICARE, MEDICAID, SELFPAY ==
--- NOTE | ~2023-10-28 | XR_ITS ---
EXAMINATION: XR shoulder LT min 2V DATE: 10/28/2023 16:30 INDICATION: Left shoulder pain. TECHNIQUE: 5 views of left shoulder were obtained. COMPARISON: None. FINDINGS: Bone alignment is normal. No fracture. There is mild osteoarthritis of glenohumeral joint a nd moderate osteoarthritis of the acromioclavicular joint. Calcified pulmonary nodules and calcified hilar lymph nodes are consistent with old granulomatous disease. IMPRESSION: 1. Polyarticular osteoarthritis. Reviewed, dictated and finalized at location E. TECH
== END 2023-10-28 15:59 | disposition home or self-care (01) ==
PROVIDERS: PCP Family Medicine; Visit Provider Family Medicine
DX: M19.012 Primary osteoarthritis, left shoulder (principal)
CPT/HCPCS: 73030

== ENCOUNTER 2024-09-21 10:36 | Outpatient (CLI) | payer MEDICARE, SELFPAY ==
--- NOTE | ~2024-09-21 | XR_ITS ---
AP and lateral views of the left hip Clinical history: Pain Findings: Status post ORIF of subacute healing intertrochanteric fracture of the proximal left femur. No osseous orthopedic hardware complication clearly evident. Left hip joint space is intact. Large c alcified uterine fibroid present. Impression: Status post ORIF of subacute, healing intertrochanteric fracture the proximal left femur. Large calcified fibroid. Reviewed, dictated and finalized at location . STANT PASTRY CHEF Impression: Status post ORIF of subacute, healing intertrochanteric fracture the proximal l eft femur. Large calcified fibroid.
--- NOTE | ~2024-09-21 | XR_ITS ---
AP and lateral views of the left femur Clinical History: Pain Findings: Subacute healing intertrochanteric fracture of the proximal left femur present, with ORIF h ardware in place. Left hip joint is preserved. Left knee arthroplasty in place. Soft tissues are unre markable. Impression: Status post ORIF of healing, subacute intertrochanteric fracture of the proximal left femur. Left knee arthroplasty in place. Reviewed, dictated and finalized at location M. INE WEDGER Impression: Status post ORIF of healing, subacute intertrochanteric fracture of the proxima l left femur. Left knee arthroplasty in place.
== END 2024-09-21 10:37 | disposition home or self-care (01) ==
PROVIDERS: PCP Family Medicine; Visit Provider Family Medicine
DX: S72.142D Displaced intertrochanteric fracture of left femur, subsequent encounter for closed fracture with routine healing (principal); D25.9 Leiomyoma of uterus, unspecified; Z98.890 Other specified postprocedural states; Z96.652 Presence of left artificial knee joint; X58.XXXD Exposure to other specified factors, subsequent encounter
CPT/HCPCS: 73502; 73552

== ENCOUNTER 2024-10-23 10:39 | Inpatient (IN) | payer MEDICARE, SELFPAY ==
[2024-10-23] VITALS (8 sets, daily range): BP systolic 150–172; BP diastolic 50–92; PULSE 83–104; RESP 18–28; TEMP 36.4–37.1; O2SAT 87–95; BMI 24.0
--- NOTE | ~2024-10-23 | XR_ITS ---
CHEST RADIOGRAPH CLINICAL HISTORY: coughing . COMPARISON: 12/29/2019 TECHNIQUE: Single portable view of the chest. FINDINGS The cardiomediastinal silhouette is unremarkable. The lungs are clear. Visualized osseous structures and soft tissues are unremarkable. IMPRESSION: No focal infiltrate or effusion. Reviewed, dictated and finalized at location A. F METEOROLOGIST
--- NOTE | ~2024-10-23 | CT_ITS ---
History: Unwitnessed fall, possible head injury PROCEDURE: CT cervical spine without intravenous contrast. COMPARISON: None TECHNIQUE: Multiple contiguous axial images of the cervical spine were performed without the administration of i ntravenous contrast. DLP: 138 mGy-cm FINDINGS: Exaggeration of the normal curvature of the cervical spine is identified. Significant degenerative disease is present, with osteophyte formation, disc space narrowing, endplat e changes, ankylosis and vacuum phenomena. Moderate facet arthropathy is also noted. Biapical scarring is noted. Calcified granuloma within the left upper lobe. No discrete soft tissue abnormality is present. The airway is patent. Impression: Significant degenerative disease within the cervical spine, without acute fracture. Reviewed, dictated and finalized at location A. NE MEDIA DIRECTOR Impression: Significant degenerative disease within the cervical spine, without acute fract ure.
--- NOTE | ~2024-10-23 | CT_ITS ---
History: Fall PROCEDURE: CT head without contrast. COMPARISON: None TECHNIQUE: Axial imaging of the head performed from the skull base to the vertex without IV contrast. Sagittal a nd coronal reformations obtained. DLP: 984 mGy-cm FINDINGS: The ventricles are enlarged. The dilatation of the ventricles is proportional to the degree of sulcal prominence, not uncommon in the senescent brain. Decreased attenuation is identified within the periventricular white matter, likely secondary to micr ovascular ischemic disease, in a patient of this age. There is no mass, mass effect or midline shift. There is no abnormal extra-axial fluid collection or intracranial hemorrhage. Visualized paranasal sinuses are clear. The mastoid air cells are well aerated. No acute displaced fractures within the overlying cranium. Impression: No acute intracranial hemorrhage or suspicious mass effect. Reviewed, dictated and finalized at location A. N DRIVER SALESPERSON Impression: No acute intracranial hemorrhage or suspicious mass effect.
--- NOTE | ~2024-10-23 | XR_ITS ---
HISTORY: fall, b/l knee pain/ unable to move both legs COMPARISON: None TECHNIQUE: 3 views of the right knee were performed FINDINGS: No acute or subacute displaced fracture. Diffuse bony demineralization is present. Significant degenerative disease is also noted, with narrowing of the medial and lateral tibiofemoral joint space. Examination is markedly limited as no frontal view is provided IMPRESSION: Limited evaluation of the right knee (is no frontal view is provided) demonstrating diff use bony demineralization, as detailed above. Reviewed, dictated and finalized at location A. W HAT BRIM RAISER OPERATOR IMPRESSION: Limited evaluation of the right knee (is no frontal view is provid ed) demonstrating diffuse bony demineralization, as detailed above.
--- NOTE | ~2024-10-23 | XR_ITS ---
HISTORY: fall, b/l knee pain/ unable to move both legs COMPARISON: None TECHNIQUE: 3 views of the left knee were performed FINDINGS: A total knee prosthesis is identified. No periprosthetic fracture is appreciated. Markie is present within the distal femur, without a distal femur fracture. IMPRESSION: Hardware without periprosthetic fracture. Reviewed, dictated and finalized at location A. ON SEED CULLER
--- NOTE | ~2024-10-23 | XR_ITS ---
HISTORY: fall, b/l hip pain COMPARISON: 09/21/2024 TECHNIQUE: Single frontal view of the pelvis was performed FINDINGS: Acute fracture of the right femoral neck is present. Overlap of the fracture fragment is present. Intramedullary ilsa and screw within the left femur. The morphology of the left femur is unchanged fro m previous examination dated 09/21/2024. Fecal stasis within the pelvis. Large calcification within the right hemipelvis, likely related to uterine fibroids. IMPRESSION: Acute fracture of the right femoral neck with overlap of the fracture fragment, as mar led above. Reviewed, dictated and finalized at location A. ATIONAL INTELLIGENCE ANALYST IMPRESSION: Acute fracture of the right femoral neck with overlap of the fract ure fragment, as detailed above.
--- NOTE | ~2024-10-23 | CT_ITS ---
EXAMINATION: CTA chest PE protocol DATE: 10/23/2024 14:26 INDICATION: Cough/ Rule out pulmonary embolism TECHNIQUE: Computed tomography angiography (CTA) of the chest was performed with 100 mL Omnipaque-350 intravenous contrast timed to evaluate the pulmonary arteries. Coronal maximum intensity projection 3D-reconstructions were created by the technologist. The dose-length product (DLP) was 297.77 mGy-cm. Automated exposure control and iterative reconstruction technique were employed. COMPARISON: 12/27/2019. FINDINGS: Lung parenchyma and airways: Scattered tree-in-bud opacities involving all lobes. Less frequent centr ilobular nodular opacities and focal areas of consolidation. Airway debris and bronchial wall thicken ing. Linear left basilar atelectasis/scar. Stable 6 mm (image 66) and 7 mm (image 46) left upper lobe groundglass nodules Pleura: Unremarkable. Thoracic inlet, axillae and chest wall: Unremarkable. Thoracic aorta: No significant dilation. No dissection. Moderate arch calcification. Mediastinum: Normal. Heart and pericardium: Normal. Coronary artery calcifications: Mild. Upper abdomen: No significant finding. Bones: No acute osseous finding. Stable bilateral adrenal nodules, likely representing adenomas and m yelolipoma. Pulmonary arteries: Study quality: Degraded such that subsegmental and non-occlusive segmental emboli could be missed. Nonocclusive acute embolus in the right lower lobe the segmental/subsegmental junct ion. IMPRESSION: Acute nonocclusive segmental/subsegmental right lower lobe pulmonary embolus. Small clot burden. No C T evidence of right heart strain. Diffuse tree-in-bud opacities as can be seen with atypical infection (MAC, TB, fungal), ABPA, airways disease (CF, bronchiectasis), and aspiration. Infrequent focal areas of opacity likely representing atelectasis or additional foci of infection. Multiple left upper lobe groundglass pulmonary nodules, recommend low-dose noncontrast CT follow-up i n 1 year to confirm stability over 5 years, at which point no additional follow-up would be recommend ed. Reviewed, dictated and finalized at location K. NAVIGATOR IMPRESSION: Acute nonocclusive segmental/subsegmental right lower lobe pulmonary embolus. S mall clot burden. No CT evidence of right heart strain. Diffuse tree-in-bud opacities as can be seen with atypical infection (MAC, TB, fungal), ABPA, airways disease (CF, bronchiectasis), and aspiration. Infrequent focal areas of opacity likely representing atelectasis or additional foci of infection. Multiple left upper lobe groundglass pulmonary nodules, recommend low-dose nonc ontrast CT follow-up in 1 year to confirm stability over 5 years, at which poin t no additional follow-up would be recommended.
--- NOTE | 2024-10-23 11:19 | ED_ITS ---
HPI - Fall General Chief Complaint: Fall Stated Complaint: FALL Time Seen by Provider: 10/23/24 11:18 Source: patient Mode of arrival: EMS Limitations: no limitations History of Present Illness HPI Narrative: patient is wheelchair-bound came from long-term because of a fall out of the wheelchair. Patient report history of multiple falls out of the weel chair. Recent history of COVID, off quarantine today. Patient reports possible head injury, hips pain and knee pain Related Data Home Medications ?Medication ?Instructions ?Recorded ?Confirmed ?Last Taken ?Type aspirin 81 mg tablet,delayed 81 mg PO 09/07/23 03/16/24 Unknown History release prednisolone acetate 1 % eye 1 drp RIGHT EYE TID 03/16/24 03/16/24 Unknown History drops,suspension Allergies Allergy/AdvReac Type Severity Reaction Status Date / Time amoxicillin Allergy Mild Unknown Verified 10/23/24 11:08 blueberry Allergy Mild Unknown Verified 10/23/24 11:08 Sulfa (Sulfonamide Allergy Mild Unknown Verified 10/23/24 11:08 Antibiotics) levofloxacin Allergy Unknown Insomnia Verified 11/30/23 14:52 morphine Allergy Unknown Hives Verified 11/30/23 14:52 Review of Systems 2 Review of Systems: All systems reviewed & are unremarkable except as noted in HPI and below PMFSH Past Medical History Medical History (Updated 10/23/24 @ 15:42 by Susan Paige MD) Polymyalgia rheumatica Parkinsonism Insomnia due to medical condition Parkinson's disease Crohn's disease, unspecified, without complications Major depression in full remission Hyperlipidemia, unspecified Hypothyroidism, unspecified Angina pectoris with documented spasm Kidney stones SLE (systemic lupus erythematosus related syndrome) On sulfasalazine Urge urinary incontinence Shoulder fracture, left Arthritis GERD (gastroesophageal reflux disease) Surgical History Surgical History History of left knee replacement History of appendectomy Hx of cholecystectomy History of bilateral carpal tunnel release S/P cubital tunnel release Left History of lumbar fusion Hx of fusion of cervical spine History of carpal tunnel release Family History Family History Mother Breast cancer BRCA gene positive Daughter Rheumatoid arthritis Cervical cancer Vitiligo Asthma Father Acute myocardial infarction Sibling Diabetes mellitus Sister Atrial fibrillation Brother Son Melanoma Social History Social History (Updated 11/30/23 @ 14:56 by Armida Epstein MA) Social History: Primary care physician: Dr. Jeremiah Kaur Code status: Full code Smoking packs per day: 1 Smoking cigarettes per day: 20.0 Years smoked: 40 Smoking pack-years: 40.00 Smoking status: Former smoker Tobacco type: cigarettes Second hand tobacco smoke exposure: Yes Smoking end date: 10/05/09 Alcohol intake: never Substance use: never Do You Feel Safe in your Home?: Yes Lack of Transportation: No Lack of Food: Never True Current Housing: I Have Housing Concerned About Future Housing: No Difficulty Paying Gas/Electric Bills: No Difficulty Paying for Meds: No Currently Unemployed: YES Education: High School Diploma/GED Difficulty w/ Childcare or Family Care: No Living arrangements: with family Additional living arrangements comments: The patient lives in [place] with her . She ambulates with a cane. 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 Gender identity (if verbalized by the patient): Female Sexual Orientation (if Verbalized by the Patient): Straight or Heterosexual Spiritual care concerns: No Agree to blood products: No Course Vital Signs Vital signs: Vital Signs Temperature 36.7 C 10/23/24 11:12 Pulse Rate 83 10/23/24 11:12 Respiratory Rate 24 H 10/23/24 11:12 Blood Pressure 150/50 H 10/23/24 11:12 Pulse Oximetry 87 L 10/23/24 11:12 Oxygen Delivery Room Air 10/23/24 11:12 Temperature 36.7 C 10/23/24 11:12 Pulse Rate 83 10/23/24 11:12 Respiratory Rate 24 H 10/23/24 11:12 Blood Pressure 150/50 H 10/23/24 11:12 Pulse Oximetry 87 L 10/23/24 11:12 Oxygen Delivery Room Air 10/23/24 11:12 MDM - Fall MDM Narrative Medical decision making narrative: PATIENT CAME TO THE ED FROM LONG-TERM BY AMBULANCE BECAUSE OF A FALL OUT OF WHEELCHAIR, VITAL SIGNS SHOWING RESPIRATION OF 24, SATURATION ON ROOM AIR 87%, PHYSICAL EXAMINATION SHOWING DEBILITATED PATIENT DIFFERENTIAL DIAGNOSIS INCLUDE INTRACRANIAL HEMORRHAGE, HIP FRACTURE, KNEE FRACTURE, PNEUMONIA, CONGESTIVE HEART FAILURE, PULMONARY EMBOLISM, PLEURAL EFFUSION BLOOD WORKUP TODAY SHOWED WBC OF 15.0, OTHERWISE INSIGNIFICANT ABG ON ROOM AIR SHOWED OXYGEN SATURATION OF 82.4 % CT HEAD, CT CERVICAL SPINE WITHOUT CONTRAST SHOWED NO ACUTE ABNORMALITY X-RAY OF THE KNEES SHOWED NO ACUTE ABNORMALITIES CHEST X-RAY SHOWED NO ACUTE ABNORMALITIES, PELVIC X-RAY SHOWED RIGHT FEMORAL NECK FRACTURE AND BECAUSE OF PATIENT IS WHEELCHAIR-BOUND 24X 7 SURGICAL TREATMENT IS NOT RECOMMENDED. BECAUSE OF THE HYPOXIA WHICH HIGH LIKELY SECONDARY TO RECENT COVID INFECTION, CTA PULMONARY SHOWED PULMONARY EMBOLISM SEGMENTAL AND SUBSEGMENTAL NO STRAIN ON THE HEART. ALSO SHOWED POSSIBLE PNEUMONIA. PATIENT'S DAUGHTER PATY WHO HAVE THE POWER OF CARDROOM WORKER REQUESTED HOSPICE CARE AND COMFORT MEASURES ONLY. SHE UNDERSTOOD THAT PATIENT WOULD NOT RECEIVE ANY MEDICATIONS OR SURGERY FOR THE CURRENT DIAGNOSIS. LONG-TERM CANNOT OFFER THE HOSPICE CARE, PATIENT WILL BE ADMITTED TO OUR FACILITY FOR HOSPICE CONSULT AND COMFORT MEASURES ONLY. KENAN OUR EMERGENCY ROOM NURSE HAD THE SAME CONVERSATION WITH THE PATIENT DAUGHTER FOR HOSPICE CARE AND COMFORT MEASURES ONLY STATUS Differential Diagnosis Differential diagnosis: Likely other ( ABOVE) Medical Records Attestation: I reviewed the patient's medical records. Lab Data Attestation: I reviewed the patient's lab results. 10/23/24 11:50 10/23/24 11:50 Labs: Lab Results 10/23/24 Range/Units 11:50 WBC 15.0 H (4.8-10.8) K/mm3 RBC 3.68 L (4.20-5.40) M/mm3 Hgb 10.5 L (11.7-13.8) g/dL Hct 35.1 (35.0-42.0) % MCV 95.4 (78.0-102.0) fL MCH 28.5 (27.0-31.0) pg MCHC 29.9 L (32-36) g/dL RDW 16.8 H (11.6-14.4) % Plt Count 353 (150-420) K/mm3 MPV 9.2 (9.2-11.8) fl Immature Gran % (Auto) Not Reportable Neut % (Auto) Not Reportable Lymph % (Auto) Not Reportable [place] % (Auto) Not Reportable Eos % (Auto) Not Reportable Baso % (Auto) Not Reportable Lymph # (Auto) Not Reportable [place] # (Auto) Not Reportable Eos # (Auto) Not Reportable Baso # (Auto) Not Reportable Abs Immat Gran (auto) Not Reportable Absolute Neuts (auto) Not Reportable Absolute Nucleated RBC Not Reportable Total Counted 100 Neutrophils % (Manual) 90 H (46-73) % Band Neutrophils % 0 (0-6) % Lymphocytes % (Manual) 5 L (18-44) % Monocytes % (Manual) 5 (3-9) % Nucleated RBC % Not Reportable Abs Neuts (Manual) 13.50 H (1.7-7.2) K/mm3 Abs Lymphs (Manual) 0.75 L (1.1-4.5) K/mm3 Abs Monocytes (Manual) 0.75 (0.1-0.90) K/mm3 Platelet Estimate Adequate (Adequate) Schistocytes None seen PT 10.5 (9.50-12.1) Seconds INR 0.9 APTT 30.8 H (23.9-30.70) Sec Sodium 142 (136-145) mmol/L Potassium 3.5 (3.5-5.1) mmol/L Chloride 104 (98-108) mmol/L Carbon Dioxide 28 (21-32) mmol/L Anion Gap 10 (4-12) mmol/L BUN 20 H (7-18) mg/dL Creatinine 0.99 (0.55-1.02) mg/dL Estim Creat Clear Calc 32 ml/min Estimated GFR 54 L (59 - ) Glucose 83 (70-99) mg/dL Calculated Osmolality 295 (285-295) mOsm/kg Lactic Acid 1.4 (0.4-2.0) mmol/L Calcium 8.8 (8.5-10.1) mg/dL Magnesium 1.4 L (1.8-2.4) mg/dL Total Bilirubin 1.0 (0.00-1.00) mg/dL AST 26 (15-37) U/L ALT 26 (14-59) U/L Alkaline Phosphatase 98 (46-116) U/L NT-Pro-B Natriuret Pep 5126 H (0-450) pg/mL Total Protein 6.6 (6.4-8.2) g/dL Albumin 2.8 L (3.4-5.0) g/dL ABG Data ABG results: 10/23/24 11:50 Puncture Site Left radial ABG pH 7.46 H ABG pCO2 32.5 L ABG pO2 50.0 L ABG PO2/FiO2 Ratio Not Reportable ABG HCO3 22.5 L ABG O2 Saturation 82.4 L ABG O2 Content 12.3 L ABG Base Excess -0.8 L A-a Gradient Not Reportable Oxyhemoglobin 80.6 L O2 Delivery Device Room air O2 Liters/Min 0.0 Imaging Data My impression: Impressions Head CT 10/23/24 13:05 Impression: No acute intracranial hemorrhage or suspicious mass effect. Cervical Spine CT 10/23/24 13:34 Impression: Significant degenerative disease within the cervical spine, without acute fracture. Knee X-Ray 10/23/24 13:37 IMPRESSION: Limited evaluation of the right knee (is no frontal view is provided) demonstrating diffuse bony demineralization, as detailed above. Chest X-Ray 10/23/24 13:39 IMPRESSION: No focal infiltrate or effusion. Pelvis X-Ray 10/23/24 13:40 IMPRESSION: Acute fracture of the right femoral neck with overlap of the fracture fragment, as detailed above. Knee X-Ray 10/23/24 13:43 IMPRESSION: Hardware without periprosthetic fracture. Chest CTA 10/23/24 14:31 IMPRESSION: Acute nonocclusive segmental/subsegmental right lower lobe pulmonary embolus. Small clot burden. No CT evidence of right heart strain. Diffuse tree-in-bud opacities as can be seen with atypical infection (MAC, TB, fungal), ABPA, airways disease (CF, bronchiectasis), and aspiration. Infrequent focal areas of opacity likely representing atelectasis or additional foci of infection. Multiple left upper lobe groundglass pulmonary nodules, recommend low-dose noncontrast CT follow-up in 1 year to confirm stability over 5 years, at which point no additional follow-up would be recommended. ADDENDUM: 10/23/24 1447 The following addition is made to the impression: Airway debris may reflect a component of aspiration. Radiologist's impression: Impressions Head CT 10/23/24 13:05 Impression: No acute intracranial hemorrhage or suspicious mass effect. Cervical Spine CT 10/23/24 13:34 Impression: Significant degenerative disease within the cervical spine, without acute fracture. Knee X-Ray 10/23/24 13:37 IMPRESSION: Limited evaluation of the right knee (is no frontal view is provided) demonstrating diffuse bony demineralization, as detailed above. Chest X-Ray 01/19/25 13:39 IMPRESSION: No focal infiltrate or effusion. Pelvis X-Ray 10/23/24 13:40 IMPRESSION: Acute fracture of the right femoral neck with overlap of the fracture fragment, as detailed above. Knee X-Ray 10/23/24 13:43 IMPRESSION: Hardware without periprosthetic fracture. Critical Care Time Critical Care Time Critical Care Time: Yes Total Critical Care Time: 30 Discharge Plan Discharge Clinical Impression: Fracture of hip, right, closed, Pneumonia, Pulmonary embolism, Admission for hospice care, Comfort measures only status, Acute respiratory failure with hypoxia Patient Disposition: Still a Patient Condition: Guarded Prognosis Patient Language: Luxembourgish Prescriptions: No Action prednisolone acetate 1 % drops,suspension 1 drp RIGHT EYE TID aspirin 81 mg tablet,delayed release (DR/EC) 81 mg PO propranolol 20 mg tablet 20 mg PO BID Qty: 180 1RF isosorbide mononitrate 30 mg tablet extended release 24 hr See Rx Instructions .ROUTE .COMPLEX Qty: 90 1RF Dose Instruction: TAKE 1 TABLET BY MOUTH IN THE MORNING Rx Instructions: TAKE 1 TABLET BY MOUTH IN THE MORNING propranolol 10 mg tablet See Rx Instructions .ROUTE .COMPLEX Qty: 360 0RF Dose Instruction: Take 2 tablets by mouth twice daily Rx Instructions: Take 2 tablets by mouth twice daily losartan 50 mg tablet 50 mg PO DAILY Qty: 90 1RF atorvastatin 40 mg tablet 40 mg PO DAILY Qty: 30 6RF prednisone 20 mg tablet 20 mg PO DAILY Qty: 60 1RF omeprazole 40 mg capsule,delayed release(DR/EC) 40 mg PO BID Qty: 180 1RF tizanidine 4 mg tablet See Rx Instructions .ROUTE .COMPLEX Qty: 90 0RF Dose Instruction: TAKE 1 TO 2 TABLETS BY MOUTH EVERY 8 HOURS NEEDED Rx Instructions: TAKE 1 TO 2 TABLETS BY MOUTH EVERY 8 HOURS NEEDED amlodipine 5 mg tablet 5 mg PO DAILY Qty: 90 0RF levothyroxine 75 mcg tablet See Rx Instructions .ROUTE .COMPLEX Qty: 90 0RF Dose Instruction: TAKE 1 TABLET BY MOUTH ONCE DAILY ON AN EMPTY STOMACH IN THE MORNING FOR 90 DAYS Rx Instructions: TAKE 1 TABLET BY MOUTH ONCE DAILY ON AN EMPTY STOMACH IN THE MORNING FOR 90 DAYS duloxetine 60 mg capsule,delayed release(DR/EC) 60 mg PO DAILY Qty: 90 1RF trazodone 50 mg tablet See Rx Instructions .ROUTE .COMPLEX Qty: 135 0RF Dose Instruction: TAKE 1 & 1/2 (ONE & ONE-HALF) TABLETS BY MOUTH EVERY DAY AT BEDTIME NEEDED FOR 90 DAYS Rx Instructions: TAKE 1 & 1/2 (ONE & ONE-HALF) TABLETS BY MOUTH EVERY DAY AT BEDTIME NEEDED FOR 90 DAYS sulfasalazine 500 mg tablet See Rx Instructions .ROUTE .COMPLEX Qty: 360 1RF Dose Instruction: Take 2 tablets by mouth twice daily Rx Instructions: Take 2 tablets by mouth twice daily
[2024-10-23 11:57] LABS: Base Excess ABG -0.8 mmol/L (0-2); HCO3 ABG 22.5 mmol/L (23-29); Oxygen Content ABG 12.3 %vol (16.0-22.0); Oxygen Saturation ABG 82.4 % (95-97); Oxyhemoglobin 80.6 % (94-100); PCO2 ABG 32.5 mmHg (35-45); pH ABG 7.46 (7.35-7.45)
[2024-10-23 11:59] LABS: Device ROOM AIR; Modified Allen's Test Pass; Site Drawn LEFT RADIAL
--- NOTE | 2024-10-23 12:53 | ECG_ITS ---
Test Date: 2024-10-23 13:30:15 Measurements Intervals [place] Rate: 97 P: 74 FL: 163 QRS: -21 QRSD: 108 T: 92 QT: 352 QTc: 449 Interpretive Statements SINUS RHYTHM INCOMPLETE RIGHT BUNDLE BRANCH BLOCK [90+ ms QRS DURATION, TERMINAL R IN V1/V2, 40+ ms S IN I/aVL/V4/V5/V6] LEFT VENTRICULAR HYPERTROPHY AND ST-T CHANGE [VOLTAGE CRITERIA PLUS ST/T ABNORMALITY] POSSIBLE SEPTAL MYOCARDIAL INFARCTION , PROBABLY OLD [30 ms Q WAVE IN V1/V2] No previous ECG available for comparison Electronically Signed On 10-24-2024 18:12:50 SHEET PILE HAMMER OPERATOR by Tarun Feliciano M.D.
[2024-10-23 13:15] LABS: Hematocrit 35.1 % (35.0-42.0); Hemoglobin 10.5 g/dL (11.7-13.8); Mean Corpuscular HGB Conc 29.9 g/dL (32-36); Mean Corpuscular Hemoglobin 28.5 pg (27.0-31.0); Mean Corpuscular Volume 95.4 fL (78.0-102.0); Mean Platelet Volume 9.2 fl (9.2-11.8); Platelet Count Result 353 K/mm3 (150-420); Red Blood Count 3.68 M/mm3 (4.20-5.40); Red Cell Distribution Width 16.8 % (11.6-14.4)
[2024-10-23 13:22] LABS: INR 0.9; Partial Thromboplastin Time 30.8 Sec (23.9-30.70); Prothrombin Time 10.5 Seconds (9.50-12.1)
[2024-10-23 13:28] LABS: Lactic Acid Reflex 1.4 mmol/L (0.4-2.0)
[2024-10-23 13:32] LABS: Alanine Aminotransferase 26 U/L (14-59); Albumin Level 2.8 g/dL (3.4-5.0); Alkaline Phosphatase 98 U/L (46-116); Anion Gap 10 mmol/L (4-12); Aspartate Amino Transferase 26 U/L (15-37); Blood Urea Nitrogen 20 mg/dL (7-18); Calcium 8.8 mg/dL (8.5-10.1); Carbon Dioxide 28 mmol/L (21-32); Chloride 104 mmol/L (98-108); Estimated CRCL calculation 32 ml/min; Estimated Glomerular Filt Rate 54; Glucose 83 mg/dL (70-99); Magnesium 1.4 mg/dL (1.8-2.4); NT Pro B Type Natriuretic Pept 5126 pg/mL (0-450); Osmolality Calculated 295 mOsm/kg (285-295); Potassium 3.5 mmol/L (3.5-5.1); Sodium 142 mmol/L (136-145); Total Protein 6.6 g/dL (6.4-8.2)
--- NOTE | 2024-10-23 14:09 | PC.NURSE ---
[id number] DR VANCE SPOKE WITH PT DAUGHTER FOR PLAN FOR CARE FOR PT
[2024-10-23 14:43] LABS: Band Neutrophils Percent 0 % (0-6); Lymphocytes Absolute Manual 0.75 K/mm3 (1.1-4.5); Lymphocytes Percent Manual 5 % (18-44); Monocytes Absolute Manual 0.75 K/mm3 (0.1-0.90); Monocytes Percent Manual 5 % (3-9); Neutrophils Percent Manual 90 % (46-73); Platelet Estimate Adequate (Adequate); Schistocytes None Seen; Total Cells Counted 100
--- NOTE | 2024-10-23 15:07 | PC.NURSE ---
ERP spoke with patient's daughter Gillian who declines any further testing or treatment, States patient is DNR comfort care and wants her put on hospice.
[2024-10-23] MEDS: ONDANSETRON HCL ODT 4 MG TABLET PO (15:34)
[2024-10-23] MEDS: HYDROmorphone HCL INJ (*CRX) 2 MG/ML VIAL 0.5 MG IM (15:35)
[2024-10-23] MEDS: SODIUM CHLORIDE 0.9% IV 1,000 ML 100 ML IV CONT (16:12)
--- NOTE | 2024-10-23 18:49 | PC.NURSE ---
Patient arrived to unit from ED post fall at [facility] today with confirmed fractured R hip. Patient admitted to room 209 and required 2 assist with maxi slide to move from stretcher to bed. Patient educated on use of call light and bed controls.
[2024-10-24] VITALS: BP 186/68; PULSE 99; RESP 20; TEMP 36.8; O2SAT 94
[2024-10-24] MEDS: LORazepam INJ (*CRX) 2 MG/ML VIAL 1 MG IV PUSH ×2 (02:52→09:54)
[2024-10-24] MEDS: HYDROmorphone HCL INJ (*CRX) 2 MG/ML VIAL 1 MG IV PUSH ×5 (02:53→20:09)
[2024-10-24 05:30] VITALS: O2SAT 94
[2024-10-24 08:00] VITALS: BP 161/58; PULSE 111; RESP 24; TEMP 36.8; O2SAT 98
--- NOTE | 2024-10-24 10:38 | PM.SD2 ---
Same Day Admit/Disch: HPI History of Present Illness Chief complaint: FALL Narrative: Cristy Duckworth is a 79 year old female Was brought to the emergency department via EMS after reports she had fallen from her wheelchair which he is wheelchair-bound at the longterm. as reported per medical chart unable to get any information from patient due to medical status was that she had recent COVID infection however was off quarantine but had fallen from her wheelchair with reports of pain to head hips and knee. initial findings in the emergency department showed patient with an oxygen saturation of 87% room air and CTA positive for pulmonary embolism in pneumonia, CT head cervical spine showed no acute abnormalities as well as x-ray of knees. Pelvic x-ray showed right femoral neck fracture with call to surgical team at [facility] recommended no treatment at this time due to wheelchair bound status. ER physician had spoke with patient's daughter who was power of assistant district attorney patient unable to make her own decisions at this time and requested admission for pain management with comfort care and consult to hospice. patient was admitted for pain management will consult hospice to determine inpatient versus longterm with. at time of assessment patient is only responsive to painful stimuli, tachypnea with retractions and tachycardia. PMFSH Past Medical History Medical History Polymyalgia rheumatica Parkinsonism Insomnia due to medical condition Parkinson's disease Crohn's disease, unspecified, without complications Major depression in full remission Hyperlipidemia, unspecified Hypothyroidism, unspecified Angina pectoris with documented spasm Kidney stones SLE (systemic lupus erythematosus related syndrome) On sulfasalazine Urge urinary incontinence Shoulder fracture, left Arthritis GERD (gastroesophageal reflux disease) Surgical History Surgical History History of left knee replacement History of appendectomy Hx of cholecystectomy History of bilateral carpal tunnel release S/P cubital tunnel release Left History of lumbar fusion Hx of fusion of cervical spine History of carpal tunnel release Family History Family History Mother Breast cancer BRCA gene positive Daughter Rheumatoid arthritis Cervical cancer Vitiligo Asthma Father Acute myocardial infarction Sibling Diabetes mellitus Sister Atrial fibrillation Brother Son Melanoma Social History Social History Social History: Primary care physician: Dr. Jeremiah Kaur Code status: Full code Smoking packs per day: 1 Smoking cigarettes per day: 20.0 Years smoked: 25 Smoking pack-years: 25.00 Smoking status: Former smoker Tobacco type: cigarettes Second hand tobacco smoke exposure: No Smoking end date: 10/23/04 Alcohol intake: never Substance use: never Do You Feel Safe in your Home?: Yes Lack of Transportation: No Lack of Food: Never True Current Housing: I Have Housing Concerned About Future Housing: No Difficulty Paying Gas/Electric Bills: No Difficulty Paying for Meds: No Currently Unemployed: YES Education: High School Diploma/GED Difficulty w/ Childcare or Family Care: No Living arrangements: with family Additional living arrangements comments: The patient lives in [place] with her . She ambulates with a cane. 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 Gender identity (if verbalized by the patient): Female Sexual Orientation (if Verbalized by the Patient): Straight or Heterosexual Spiritual care concerns: No Agree to blood products: No Same Day Admit/Disch: Med Pre-admit Medications Home Medications ?Medication ?Instructions ?Recorded ?Confirmed ?Type aspirin 81 mg tablet,delayed 81 mg PO DAILY 09/07/23 10/23/24 History release isosorbide mononitrate 30 mg See Rx Instructions .Route 02/05/24 10/23/24 Rx tablet,extended release 24 hr .COMPLEX #90 tabs propranolol 10 mg tablet See Rx Instructions .Route 02/13/24 10/23/24 Rx .COMPLEX #360 tabs amlodipine 5 mg tablet 5 mg PO DAILY #90 tabs 05/23/24 10/23/24 Rx duloxetine 60 mg capsule,delayed 60 mg PO DAILY #90 caps 05/23/24 10/23/24 Rx release levothyroxine 75 mcg tablet See Rx Instructions .Route 05/23/24 10/23/24 Rx .COMPLEX #90 tabs sulfasalazine 500 mg tablet See Rx Instructions .Route 05/26/24 10/23/24 Rx .COMPLEX #360 tabs Gualfenesin liquid See Rx Instructions BYMOUTH 6XD 10/23/24 10/23/24 History cough acetaminophen 325 mg capsule 650 mg PO Q6H PRN fever or pain 10/23/24 10/23/24 History albuterol sulfate 90 mcg/actuation 2 inh inhalation Q6H PRN shortness 10/23/24 10/23/24 History aerosol inhaler (Ventolin HFA) of breath or wheezing atorvastatin 40 mg tablet 40 mg PO HS 10/23/24 10/23/24 History calcium carbonate 500 mg PO QID PRN dyspepsia 10/23/24 10/23/24 History diclofenac sodium 1 % topical gel 2 g topical QID PRN pain 10/23/24 10/23/24 History (Arthritis Pain (diclofenac)) ergocalciferol (vitamin D2) 1,250 50,000 unit PO WEEKLY 10/23/24 10/23/24 History mcg (50,000 unit) capsule lidocaine 4 % topical patch 1 patch topical Q24H 10/23/24 10/23/24 History (Blue-Emu Lidocaine Patch) losartan 50 mg tablet 100 mg PO DAILY 10/23/24 10/23/24 History naloxone 4 mg/actuation nasal spray 4 mg intranasal Q3M PRN opioid 10/23/24 10/23/24 History overdose naloxone 4 mg/actuation nasal 4 mg intranasal Q2M PRN opioid 10/23/24 10/23/24 History spray (Narcan) overdose omeprazole 40 mg capsule,delayed 40 mg PO DAILY 10/23/24 10/23/24 History release oxycodone 5 mg capsule 5 mg PO Q4H PRN pain 10/23/24 10/23/24 History polyethylene glycol 3350 17 gram 17 g PO DAILY 10/23/24 10/23/24 History oral powder packet (ClearLax) prednisone 20 mg tablet 10 mg PO DAILY 10/23/24 10/23/24 History sennosides 8.6 mg-docusate sodium 2 tab-cap PO BID 10/23/24 10/23/24 History 50 mg tablet (Senna with Docusate Sodium) tizanidine 4 mg tablet 4 mg PO Q8H PRN muscle spasticity 10/23/24 10/23/24 History trazodone 50 mg tablet 50 mg PO HS PRN insomnia 10/23/24 10/23/24 History Review of Systems Review of Systems ROS unobtainable: Yes unobtainable due to medical condition Exam Narrative: GENERAL: only responding to painful stimuli with eye tracking EYES: PERRLA. HEENT: Dry mucous membranes. LUNGS: diminished auscultation bilaterally. Tachypnea, Use of accessory muscle use. CARDIOVASCULAR: Tachycardia. ABDOMEN: Soft. No palpable masses. EXTREMITIES: BLE contracted SKIN: No rashes or lesions. Skin warm, dry. NEUROLOGIC: Unable to assess DS: Data Data Completed and Pending Labs on day of discharge: Labs from last 24 hours 10/23/24 11:50 WBC 15.0 H RBC 3.68 L Hgb 10.5 L Hct 35.1 MCV 95.4 MCH 28.5 MCHC 29.9 L RDW 16.8 H Plt Count 353 MPV 9.2 Immature Gran % (Auto) Not Reportable Neut % (Auto) Not Reportable Lymph % (Auto) Not Reportable [place] % (Auto) Not Reportable Eos % (Auto) Not Reportable Baso % (Auto) Not Reportable Lymph # (Auto) Not Reportable [place] # (Auto) Not Reportable Eos # (Auto) Not Reportable Baso # (Auto) Not Reportable Abs Immat Gran (auto) Not Reportable Absolute Neuts (auto) Not Reportable Absolute Nucleated RBC Not Reportable Total Counted 100 Neutrophils % (Manual) 90 H Band Neutrophils % 0 Lymphocytes % (Manual) 5 L Monocytes % (Manual) 5 Nucleated RBC % Not Reportable Abs Neuts (Manual) 13.50 H Abs Lymphs (Manual) 0.75 L Abs Monocytes (Manual) 0.75 Platelet Estimate Adequate Schistocytes None seen PT 10.5 INR 0.9 APTT 30.8 H Puncture Site Left radial ABG pH 7.46 H ABG pCO2 32.5 L ABG pO2 50.0 L ABG PO2/FiO2 Ratio Not Reportable ABG HCO3 22.5 L ABG O2 Saturation 82.4 L ABG O2 Content 12.3 L ABG Base Excess -0.8 L A-a Gradient Not Reportable Oxyhemoglobin 80.6 L Total Hemoglobin Pending O2 Delivery Device Room air O2 Liters/Min 0.0 Sodium 142 Potassium 3.5 Chloride 104 Carbon Dioxide 28 Anion Gap 10 BUN 20 H Creatinine 0.99 Estim Creat Clear Calc 32 Estimated GFR 54 L Glucose 83 Calculated Osmolality 295 Lactic Acid 1.4 Calcium 8.8 Magnesium 1.4 L Total Bilirubin 1.0 AST 26 ALT 26 Alkaline Phosphatase 98 NT-Pro-B Natriuret Pep 5126 H Total Protein 6.6 Albumin 2.8 L Imaging Radiologist's impression: My impression: Impressions Head CT 10/23/24 13:05 Impression: No acute intracranial hemorrhage or suspicious mass effect. Cervical Spine CT 10/23/24 13:34 Impression: Significant degenerative disease within the cervical spine, without acute fracture. Knee X-Ray 10/23/24 13:37 IMPRESSION: Limited evaluation of the right knee (is no frontal view is provided) demonstrating diffuse bony demineralization, as detailed above. Chest X-Ray 10/23/24 13:39 IMPRESSION: No focal infiltrate or effusion. Pelvis X-Ray 10/23/24 13:40 IMPRESSION: Acute fracture of the right femoral neck with overlap of the fracture fragment, as detailed above. Knee X-Ray 10/23/24 13:43 IMPRESSION: Hardware without periprosthetic fracture. Chest CTA 10/23/24 14:31 IMPRESSION: Acute nonocclusive segmental/subsegmental right lower lobe pulmonary embolus. Small clot burden. No CT evidence of right heart strain. Diffuse tree-in-bud opacities as can be seen with atypical infection (MAC, TB, fungal), ABPA, airways disease (CF, bronchiectasis), and aspiration. Infrequent focal areas of opacity likely representing atelectasis or additional foci of infection. Multiple left upper lobe groundglass pulmonary nodules, recommend low-dose noncontrast CT follow-up in 1 year to confirm stability over 5 years, at which point no additional follow-up would be recommended. ADDENDUM: 10/23/24 [id number] The following addition is made to the impression: Airway debris may reflect a component of aspiration. DS: Summary Hospital Course Reason for hospitalization: Fall with injury/ acute fracture of the right femoral neck/ pulmonary embolism/ pneumonia Hospital Course: Cristy Duckworth is a 79 year old female Was brought to the emergency department via EMS after reports she had fallen from her wheelchair which he is wheelchair-bound at the longterm. as reported per medical chart unable to get any information from patient due to medical status was that she had recent COVID infection however was off quarantine but had fallen from her wheelchair with reports of pain to head hips and knee. initial findings in the emergency department showed patient with an oxygen saturation of 87% room air and CTA positive for pulmonary embolism in pneumonia, CT head cervical spine showed no acute abnormalities as well as x-ray of knees. Pelvic x-ray showed right femoral neck fracture with call to surgical team at [facility] recommended no treatment at this time due to wheelchair bound status. ER physician had spoke with patient's daughter who was power of assistant district attorney patient unable to make her own decisions at this time and requested admission for pain management with comfort care and consult to hospice. patient was admitted for pain management will consult hospice to determine inpatient versus longterm with. at time of assessment patient is only responsive to painful stimuli, tachypnea with retractions and tachycardia. hospice has been consulted and plan for patient to discharge to hospice care Status at Discharge Functional status at discharge: bed bound Time Spent with Patient Time attestation: Total time spent providing and/or coordinating discharge services: Time spent: Greater than 30 minutes DS: Admitting Diagnosis Discharge Date 10/24/2024 Admitting Diagnosis Fall with injury/ acute fracture of the right femoral neck/ pulmonary embolism/ pneumonia DS: Discharge Diagnosis Discharge Diagnosis (1) Comfort measures only status: Code(s): Z51.5 - Encounter for palliative care Status: Acute (2) Admission for hospice care: Code(s): Z51.5 - Encounter for palliative care Status: Acute (3) Pulmonary embolism: Code(s): I26.99 - Other pulmonary embolism without acute cor pulmonale Status: Acute (4) Hypertension: Qualifiers: Hypertension type: primary hypertension Qualified Code(s): I10 - Essential (primary) hypertension Code(s): I10 - Essential (primary) hypertension Status: Acute (5) Fracture of hip, right, closed: Code(s): S72.001A - Fracture of unspecified part of neck of right femur, initial encounter for closed fracture Status: Acute (6) Pneumonia: Code(s): J18.9 - Pneumonia, unspecified organism Status: Acute (7) Acute respiratory failure with hypoxia: Code(s): J96.01 - Acute respiratory failure with hypoxia Status: Acute Plan Disposition: Discharge to Hospice Discharge Plan Discharge Attending physician on discharge: Jose Larose Discharging Clinician: Bing Lamar Anticipated Discharge Date/Time: 10/24/24 10:49 Patient Disposition: Hospice - Medical Facility Patient Language: Mauritian Stand Alone Forms: General Discharge Information Discharge Medications: Continued acetaminophen 325 mg capsule 650 mg PO Q6H PRN (Reason: fever or pain) Discontinued naloxone 4 mg/actuation spray,non-aerosol 4 mg INTRANASAL Q3M PRN (Reason: opioid overdose) albuterol sulfate [Ventolin HFA] 90 mcg/actuation HFA aerosol inhaler 2 inh inhalation Q6H PRN (Reason: shortness of breath or wheezing) diclofenac sodium [Arthritis Pain (diclofenac)] 1 % gel 2 g topical QID PRN (Reason: pain) Rx Instructions: apply to single elbow, wrist or hand; for hand includes palm/fingers/back of hand ergocalciferol (vitamin D2) 1,250 mcg (50,000 unit) capsule 50,000 unit PO WEEKLY lidocaine [Blue-Emu Lidocaine Patch] 4 % adhesive patch,medicated 1 patch topical Q24H Rx Instructions: may leave on for up to 12 hrs oxycodone 5 mg capsule 5 mg PO Q4H PRN (Reason: pain) polyethylene glycol 3350 [ClearLax] 17 gram powder in packet 17 g PO DAILY naloxone [Narcan] 4 mg/actuation spray,non-aerosol 4 mg intranasal Q2M PRN (Reason: opioid overdose) Rx Instructions: spray 1 dose into ONE nostril; alternate nostrils w each dose until help arrives Gualfenesin liquid liquid See Rx Instructions BYMOUTH 6XD Rx Instructions: orally 6 times per day; 100mg/5ml. Give 10ml every 4hours for 7 days. start 10-20-24 sennosides-docusate sodium [Senna with Docusate Sodium] 8.6-50 mg tablet 2 tab-cap PO BID calcium carbonate 500 mg calcium (1,250 mg) tablet,chewable 500 mg PO QID PRN (Reason: dyspepsia) losartan 50 mg tablet 100 mg PO DAILY atorvastatin 40 mg tablet 40 mg PO HS trazodone 50 mg tablet 50 mg PO HS PRN (Reason: insomnia) tizanidine 4 mg tablet 4 mg PO Q8H PRN (Reason: muscle spasticity) prednisone 20 mg tablet 10 mg PO DAILY omeprazole 40 mg capsule,delayed release(DR/EC) 40 mg PO DAILY aspirin 81 mg tablet,delayed release (DR/EC) 81 mg PO DAILY isosorbide mononitrate 30 mg tablet extended release 24 hr See Rx Instructions .ROUTE .COMPLEX Qty: 90 1RF Dose Instruction: TAKE 1 TABLET BY MOUTH IN THE MORNING Rx Instructions: TAKE 1 TABLET BY MOUTH IN THE MORNING propranolol 10 mg tablet See Rx Instructions .ROUTE .COMPLEX Qty: 360 0RF Dose Instruction: Take 2 tablets by mouth twice daily Rx Instructions: Take 2 tablets by mouth twice daily amlodipine 5 mg tablet 5 mg PO DAILY Qty: 90 0RF levothyroxine 75 mcg tablet See Rx Instructions .ROUTE .COMPLEX Qty: 90 0RF Dose Instruction: TAKE 1 TABLET BY MOUTH ONCE DAILY ON AN EMPTY STOMACH IN THE MORNING FOR 90 DAYS Rx Instructions: TAKE 1 TABLET BY MOUTH ONCE DAILY ON AN EMPTY STOMACH IN THE MORNING FOR 90 DAYS duloxetine 60 mg capsule,delayed release(DR/EC) 60 mg PO DAILY Qty: 90 1RF sulfasalazine 500 mg tablet See Rx Instructions .ROUTE .COMPLEX Qty: 360 1RF Dose Instruction: Take 2 tablets by mouth twice daily Rx Instructions: Take 2 tablets by mouth twice daily Date of admission: 10/23/24 15:42 Primary Care Provider: Migel Cruz Admitting Provider: Jose Larose Attending physician on admission: Bing Lamar Condition: Terminal Quality -Patient's previous records reviewed on admission -ER notes reviewed in detail on admission -discussed all findings and current treatment plan with patient/Family/POA -Consultations reviewed for recommendations -Patient's disposition for safe discharge discussed with comp field case manager Dictation performed by [employer] direct speech recognition software, therefore box spring frame builder variants and typographical errors may occur. Hospitalist MIPS Advance Care Plan I have confirmed that the patient's Advanced Care Plan is present, code status is documented, or surrogate decision maker is listed in patient medical record.: Yes Medication Reconciliation I have utilized all available resources to obtain, update and review the patients current medications (includes all prescriptions, OTC, herbals, cannabis, and nutritional supplements).: Yes The patient is not eligible for med reconciliation; the patient is in a emergent medical situation where delaying treatment would jeopardize the patients health.: No Heart Failure (Exclusion) Patient has history of Heart Transplant or Left Ventricular Assistive Device?: No IF YES, STOP HERE Heart Failure (Qualifier) Patient has current or prior documentation of LVEF less than or equal to 40%, or mod/servere depressed LVSF?: No IF NO, STOP HERE
[2024-10-24] MEDS: SCOPOLAMINE 1 MG PATCH 1 PATCH (12:03)
--- NOTE | 2024-10-24 12:30 | PC.NURSE ---
Pt is not responding to questions . Her eyes are closed and she does occasionally moan. Bed bath given and gown changed. Family are aware of the pt's condition.
--- NOTE | 2024-10-24 15:06 | P.HP_ITS ---
H&P: HPI History of Present Illness Date/Time: 10/24/24 15:06 Chief Complaint: Fall Narrative: Cristy Duckworth is a 79 year old female Was brought to the emergency department via EMS after reports she had fallen from her wheelchair which he is wheelchair- bound at the [facility]. as reported per medical chart unable to get any information from patient due to medical status was that she had recent COVID i nfection however was off quarantine but had fallen from her wheelchair with reports of pain to head hips and knee. initial findings in the emergency department showed patient with an oxygen saturation of 87% room air and CTA positive for pulmonary embolism in pneumonia, CT head cervical spine showed no acute abnormalities as well as x-ray of knees. Pelvic x-ray showed right femoral neck fracture with call to surgical team at [facility] recommended no treatment at this time due to wheelchair bound status. ER physician had spoke with patient's daughter who was power of staff attorney patient unable to make her own decisions at this time and requested admission for pain management with comfort care and consult to hospice. patient was admitted for pain management will consult hospice to determine inpatient versus [facility]dc with. at time of assessment patient is only responsive to painful stimuli, tachypnea with retractions and tachycardia. Review of Systems Review of Systems: ROS unobtainable: Yes unobtainable due to medical condition and unobtainable due to mental status PMFSH Past Medical History Medical History Polymyalgia rheumatica Parkinsonism Insomnia due to medical condition Parkinson's disease Crohn's disease, unspecified, without complications Major depression in full remission Hyperlipidemia, unspecified Hypothyroidism, unspecified Angina pectoris with documented spasm Kidney stones SLE (systemic lupus erythematosus related syndrome) On sulfasalazine Urge urinary incontinence Shoulder fracture, left Arthritis GERD (gastroesophageal reflux disease) Surgical History Surgical History History of left knee replacement History of appendectomy Hx of cholecystectomy History of bilateral carpal tunnel release S/P cubital tunnel release Left History of lumbar fusion Hx of fusion of cervical spine History of carpal tunnel release Family History Family History Mother Breast cancer BRCA gene positive Daughter Rheumatoid arthritis Cervical cancer Vitiligo Asthma Father Acute myocardial infarction Sibling Diabetes mellitus Sister Atrial fibrillation Brother Son Melanoma Social History Social History Social History: Primary care physician: Dr. Jeremiah Kaur Code status: Full code Smoking packs per day: 1 Smoking cigarettes per day: 20.0 Years smoked: 25 Smoking pack-years: 25.00 Smoking status: Former smoker Tobacco type: cigarettes Second hand tobacco smoke exposure: No Smoking end date: 10/23/04 Alcohol intake: never Substance use: never Do You Feel Safe in your Home?: Yes Lack of Transportation: No Lack of Food: Never True Current Housing: I Have Housing Concerned About Future Housing: No Difficulty Paying Gas/Electric Bills: No Difficulty Paying for Meds: No Currently Unemployed: YES Education: High School Diploma/GED Difficulty w/ Childcare or Family Care: No Living arrangements: with family Additional living arrangements comments: The patient lives in [place] with her . She ambulates with a cane. 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 Gender identity (if verbalized by the patient): Female Sexual Orientation (if Verbalized by the Patient): Straight or Heterosexual Spiritual care concerns: No Agree to blood products: No Meds Home Medications and Allergies Home Medications ?Medication ?Instructions ?Recorded ?Confirmed ?Type aspirin 81 mg tablet,delayed 81 mg PO DAILY 09/07/23 10/23/24 History release isosorbide mononitrate 30 mg See Rx Instructions .Route 02/05/24 10/23/24 Rx tablet,extended release 24 hr .COMPLEX #90 tabs propranolol 10 mg tablet See Rx Instructions .Route 02/13/24 10/23/24 Rx .COMPLEX #360 tabs amlodipine 5 mg tablet 5 mg PO DAILY #90 tabs 05/23/24 10/23/24 Rx duloxetine 60 mg capsule,delayed 60 mg PO DAILY #90 caps 05/23/24 10/23/24 Rx release levothyroxine 75 mcg tablet See Rx Instructions .Route 05/23/24 10/23/24 Rx .COMPLEX #90 tabs sulfasalazine 500 mg tablet See Rx Instructions .Route 05/26/24 10/23/24 Rx .COMPLEX #360 tabs Gualfenesin liquid See Rx Instructions BYMOUTH 6XD 10/23/24 10/23/24 History cough acetaminophen 325 mg capsule 650 mg PO Q6H PRN fever or pain 10/23/24 10/23/24 History albuterol sulfate 90 mcg/actuation 2 inh inhalation Q6H PRN shortness 10/23/24 10/23/24 History aerosol inhaler (Ventolin HFA) of breath or wheezing atorvastatin 40 mg tablet 40 mg PO HS 10/23/24 10/23/24 History calcium carbonate 500 mg PO QID PRN dyspepsia 10/23/24 10/23/24 History diclofenac sodium 1 % topical gel 2 g topical QID PRN pain 10/23/24 10/23/24 History (Arthritis Pain (diclofenac)) ergocalciferol (vitamin D2) 1,250 50,000 unit PO WEEKLY 10/23/24 10/23/24 History mcg (50,000 unit) capsule lidocaine 4 % topical patch 1 patch topical Q24H 10/23/24 10/23/24 History (Blue-Emu Lidocaine Patch) losartan 50 mg tablet 100 mg PO DAILY 10/23/24 10/23/24 History naloxone 4 mg/actuation nasal spray 4 mg intranasal Q3M PRN opioid 10/23/24 10/23/24 History overdose naloxone 4 mg/actuation nasal 4 mg intranasal Q2M PRN opioid 10/23/24 10/23/24 History spray (Narcan) overdose omeprazole 40 mg capsule,delayed 40 mg PO DAILY 10/23/24 10/23/24 History release oxycodone 5 mg capsule 5 mg PO Q4H PRN pain 10/23/24 10/23/24 History polyethylene glycol 3350 17 gram 17 g PO DAILY 10/23/24 10/23/24 History oral powder packet (ClearLax) prednisone 20 mg tablet 10 mg PO DAILY 10/23/24 10/23/24 History sennosides 8.6 mg-docusate sodium 2 tab-cap PO BID 10/23/24 10/23/24 History 50 mg tablet (Senna with Docusate Sodium) tizanidine 4 mg tablet 4 mg PO Q8H PRN muscle spasticity 10/23/24 10/23/24 History trazodone 50 mg tablet 50 mg PO HS PRN insomnia 10/23/24 10/23/24 History Allergies Allergy/AdvReac Type Severity Reaction Status Date / Time amoxicillin Allergy Mild Unknown Verified 10/23/24 11:08 blueberry Allergy Mild Unknown Verified 10/23/24 11:08 Sulfa (Sulfonamide Allergy Mild Unknown Verified 10/23/24 11:08 Antibiotics) levofloxacin Allergy Unknown Insomnia Verified 11/30/23 14:52 morphine Allergy Unknown Hives Verified 11/30/23 14:52 Vital Signs Vital Signs - 24 hr 10/23/24 15:20 10/23/24 16:09 10/23/24 17:15 Temperature 97.6 F 98.7 F Pulse Rate 102 H 104 H 102 H Respiratory Rate 24 H 26 H 18 Blood Pressure 155/69 H 172/92 H 167/84 H Pulse Oximetry 95 94 91 Oxygen Delivery Nasal Cannula Room Air Nasal Cannula Oxygen Flow Rate 2 3.5 10/24/24 00:00 10/24/24 08:00 Temperature 98.2 F 98.3 F Pulse Rate 99 111 H Respiratory Rate 20 24 H Blood Pressure 186/68 H 161/58 H Pulse Oximetry 94 98 Oxygen Delivery Nasal Cannula Room Air Oxygen Flow Rate 3.5 Exam Narrative: * GENERAL: only responding to painful stimuli with eye tracking * EYES: PERRLA. * HEENT: Dry mucous membranes. * LUNGS: diminished auscultation bilaterally. Tachypnea, Use of accessory muscle use. * CARDIOVASCULAR: Tachycardia. * ABDOMEN: Soft. No palpable masses. * EXTREMITIES: BLE contracted * SKIN: No rashes or lesions. Skin warm, dry. * NEUROLOGIC: Unable to assess H&P: Results Imaging CT scan - pelvis: Radiologist's impression: My impression: Impressions Head CT 10/23/24 13:05 Impression: No acute intracranial hemorrhage or suspicious mass effect. Cervical Spine CT 10/23/24 13:34 Impression: Significant degenerative disease within the cervical spine, without acute fracture. Knee X-Ray 10/23/24 13:37 IMPRESSION: Limited evaluation of the right knee (is no frontal view is provided) demonstrating diffuse bony demineralization, as detailed above. Chest X-Ray 10/23/24 13:39 IMPRESSION: No focal infiltrate or effusion. Pelvis X-Ray 10/23/24 13:40 IMPRESSION: Acute fracture of the right femoral neck with overlap of the fracture fragment, as detailed above. Knee X-Ray 10/23/24 13:43 IMPRESSION: Hardware without periprosthetic fracture. Chest CTA 10/23/24 14:31 IMPRESSION: Acute nonocclusive segmental/subsegmental right lower lobe pulmonary embolus. Small clot burden. No CT evidence of right heart strain. Diffuse tree-in-bud opacities as can be seen with atypical infection (MAC, TB, fungal), ABPA, airways disease (CF, bronchiectasis), and aspiration. Infrequent focal areas of opacity likely representing atelectasis or additional foci of infection. Multiple left upper lobe groundglass pulmonary nodules, recommend low-dose noncontrast CT follow-up in 1 year to confirm stability over 5 years, at which point no additional follow-up would be recommended. ADDENDUM: 10/23/24 [id number] The following addition is made to the impression: Airway debris may reflect a component of aspiration. Assessment and Plan Assessment and plan (1) Admission for hospice care: Code(s): Z51.5 - Encounter for palliative care Status: Acute Assessment and Plan: * Hospice consulted * comfort care * carlos placed * pain management with morphine * ativan * Scopolamine * acetaminophen (2) Comfort measures only status: Code(s): Z51.5 - Encounter for palliative care Status: Acute (3) Pulmonary embolism: Code(s): I26.99 - Other pulmonary embolism without acute cor pulmonale Status: Acute (4) Pneumonia: Code(s): J18.9 - Pneumonia, unspecified organism Status: Acute (5) Fracture of hip, right, closed: Code(s): S72.001A - Fracture of unspecified part of neck of right femur, initial encounter for closed fracture Status: Acute (6) Acute respiratory failure with hypoxia: Code(s): J96.01 - Acute respiratory failure with hypoxia Status: Acute Plan Disposition: Discharging to [facility] If No VTE Prophylaxis Answer both mechanical and pharmacologic: Reason no pharmacologic proph: medical contraindication (Hospice) -Patient's previous records reviewed on admission -ER notes reviewed in detail on admission -discussed all findings and current treatment plan with patient/Family/POA -Consultations reviewed for recommendations -Patient's disposition for safe discharge discussed with rifle case repairer Dictation performed by [employer] direct speech recognition software, therefore scrummaster variants and typographical errors may occur. Hospitalist MIPS Advance Care Plan I have confirmed that the patient's Advanced Care Plan is present, code status is documented, or surrogate decision maker is listed in patient medical record.: Yes Medication Reconciliation I have utilized all available resources to obtain, update and review the patients current medications (includes all prescriptions, OTC, herbals, cannabis, and nutritional supplements).: Yes The patient is not eligible for med reconciliation; the patient is in a emergent medical situation where delaying treatment would jeopardize the patients health.: No
[2024-10-24 16:00] VITALS: BP 148/59; PULSE 114; RESP 20; TEMP 36.7; O2SAT 93
--- NOTE | 2024-10-24 22:40 | PC.NURSE ---
Patient sleeping. T/P Q2H. Cath care given. Oral care provided. Mora cath patent and draining clear tea colored urine. Bed alarm on. Call light and belonings within reach.
[2024-10-25] VITALS: BP 155/50; PULSE 130; RESP 20; TEMP 37.8; O2SAT 91
[2024-10-25] MEDS: HYDROmorphone HCL INJ (*CRX) 2 MG/ML VIAL 1 MG IV PUSH ×2 (01:02→08:47)
[2024-10-25 01:21] VITALS: TEMP 37.8
[2024-10-25] MEDS: ACETAMINOPHEN 650 MG SUPPOSITORY RECTAL ×2 (01:21→07:05)
--- NOTE | 2024-10-25 01:25 | PC.NURSE ---
Pt given Dilaudid 1 mg IVP to promote comfort. Pt had a temperature of 100.1 so Lee Ann Lamar NP, was notified to get an order for a Tylenol suppository. Pt was given Tylenol 650 mg suppository to relieve fever. Pt turned and repositioned to her side.
[2024-10-25 02:37] VITALS: TEMP 37.8
[2024-10-25 05:30] VITALS: O2SAT 93
[2024-10-25 07:05] VITALS: TEMP 37.8
--- NOTE | 2024-10-25 07:05 | PC.NURSE ---
Pt given a Tylenol suppository 650 mg to relieve a fever of 100.0.
[2024-10-25 08:00] VITALS: BP 141/45; PULSE 121; RESP 20; TEMP 38.2; O2SAT 93
--- NOTE | 2024-10-25 10:46 | P.DS_ITS ---
DS: Admitting Diagnosis Discharge Date 10/25/2024 Admitting Diagnosis acute respiratory failure with hypoxia secondary to pneumonia and PE/ right femoral neck fracture/ failure to thrive DS: Discharge Diagnosis Discharge Diagnosis (1) Admission for hospice care: Code(s): Z51.5 - Encounter for palliative care Status: Acute Assessment and Plan: * Hospice consulted * comfort care * carlos placed * pain management with morphine * ativan * Scopolamine * acetaminophen (2) Comfort measures only status: Code(s): Z51.5 - Encounter for palliative care Status: Acute (3) Pulmonary embolism: Code(s): I26.99 - Other pulmonary embolism without acute cor pulmonale Status: Acute (4) Pneumonia: Code(s): J18.9 - Pneumonia, unspecified organism Status: Acute (5) Fracture of hip, right, closed: Code(s): S72.001A - Fracture of unspecified part of neck of right femur, initial encounter for closed fracture Status: Acute (6) Acute respiratory failure with hypoxia: Code(s): J96.01 - Acute respiratory failure with hypoxia Status: Acute Plan Disposition: Discharging to Hospice care DS: Summary Hospital Course Reason for hospitalization: Fall with injury/ acute fracture of the right femoral neck/ pulmonary embolism/ pneumonia Hospital Course: Cristy Duckworth is a 79 year old female Was brought to the emergency department via EMS after reports she had fallen from her wheelchair which he is wheelchair- bound at the skilled nursing. as reported per medical chart unable to get any information from patient due to medical status was that she had recent COVID infection however was off quarantine but had fallen from her wheelchair with reports of pain to head hips and knee. initial findings in the emergency department showed patient with an oxygen saturation of 87% room air and CTA positive for pulmonary embolism in pneumonia, CT head cervical spine showed no acute abnormalities as well as x-ray of knees. Pelvic x-ray showed right femoral neck fracture with call to surgical team at [facility] recommended no treatment at this time due to wheelchair bound status. ER physician had spoke with patient's daughter who was power of assistant attorney general patient unable to make her own decisions at this time and requested admission for pain management with comfort care and consult to hospice. patient was admitted for pain management will consult hospice to determine inpatient versus skilled nursing with. at time of assessment patient is only responsive to painful stimuli, tachypnea with retractions and tachycardia. hospice was consulted and she was discharged to hospice care. Status at Discharge Functional status at discharge: bed bound Overall status at discharge: other (Hospice) Time Spent with Patient Time attestation: Total time spent providing and/or coordinating discharge services: Time spent: Greater than 30 minutes Exam Narrative: * GENERAL: only responding to painful stimuli with eye tracking * EYES: PERRLA. * HEENT: Dry mucous membranes. * LUNGS: diminished auscultation bilaterally. Tachypnea, Use of accessory muscle use. * CARDIOVASCULAR: Tachycardia. * ABDOMEN: Soft. No palpable masses. * EXTREMITIES: BLE contracted * SKIN: No rashes or lesions. Skin warm, dry. * NEUROLOGIC: Unable to assess DS: Data Imaging Radiologist's impression: Radiologist's impression: My impression: Impressions Head CT 10/23/24 13:05 Impression: No acute intracranial hemorrhage or suspicious mass effect. Cervical Spine CT 10/23/24 13:34 Impression: Significant degenerative disease within the cervical spine, without acute fracture. Knee X-Ray 10/23/24 13:37 IMPRESSION: Limited evaluation of the right knee (is no frontal view is provided) demonstrating diffuse bony demineralization, as detailed above. Chest X-Ray 10/23/24 13:39 IMPRESSION: No focal infiltrate or effusion. Pelvis X-Ray 10/23/24 13:40 IMPRESSION: Acute fracture of the right femoral neck with overlap of the fracture fragment, as detailed above. Knee X-Ray 10/23/24 13:43 IMPRESSION: Hardware without periprosthetic fracture. Chest CTA 10/23/24 14:31 IMPRESSION: Acute nonocclusive segmental/subsegmental right lower lobe pulmonary embolus. Small clot burden. No CT evidence of right heart strain. Diffuse tree-in-bud opacities as can be seen with atypical infection (MAC, TB, fungal), ABPA, airways disease (CF, bronchiectasis), and aspiration. Infrequent focal areas of opacity likely representing atelectasis or additional foci of infection. Multiple left upper lobe groundglass pulmonary nodules, recommend low-dose noncontrast CT follow-up in 1 year to confirm stability over 5 years, at which point no additional follow-up would be recommended. ADDENDUM: 10/23/24 [id number] The following addition is made to the impression: Airway debris may reflect a component of aspiration. Discharge Plan Discharge Attending physician on discharge: Jose Larose Discharging Clinician: Bing Lamar Anticipated Discharge Date/Time: 10/24/24 10:49 Patient Disposition: Hospice - Medical Facility Patient Language: Singaporean Stand Alone Forms: General Discharge Information Discharge Medications: Discontinued naloxone 4 mg/actuation spray,non-aerosol 4 mg INTRANASAL Q3M PRN (Reason: opioid overdose) acetaminophen 325 mg capsule 650 mg PO Q6H PRN (Reason: fever or pain) albuterol sulfate [Ventolin HFA] 90 mcg/actuation HFA aerosol inhaler 2 inh inhalation Q6H PRN (Reason: shortness of breath or wheezing) diclofenac sodium [Arthritis Pain (diclofenac)] 1 % gel 2 g topical QID PRN (Reason: pain) Rx Instructions: apply to single elbow, wrist or hand; for hand includes palm/fingers/back of hand ergocalciferol (vitamin D2) 1,250 mcg (50,000 unit) capsule 50,000 unit PO WEEKLY lidocaine [Blue-Emu Lidocaine Patch] 4 % adhesive patch,medicated 1 patch topical Q24H Rx Instructions: may leave on for up to 12 hrs oxycodone 5 mg capsule 5 mg PO Q4H PRN (Reason: pain) polyethylene glycol 3350 [ClearLax] 17 gram powder in packet 17 g PO DAILY naloxone [Narcan] 4 mg/actuation spray,non-aerosol 4 mg intranasal Q2M PRN (Reason: opioid overdose) Rx Instructions: spray 1 dose into ONE nostril; alternate nostrils w each dose until help arrives Gualfenesin liquid liquid See Rx Instructions BYMOUTH 6XD Rx Instructions: orally 6 times per day; 100mg/5ml. Give 10ml every 4hours for 7 days. start 10-20-24 sennosides-docusate sodium [Senna with Docusate Sodium] 8.6-50 mg tablet 2 tab-cap PO BID calcium carbonate 500 mg calcium (1,250 mg) tablet,chewable 500 mg PO QID PRN (Reason: dyspepsia) losartan 50 mg tablet 100 mg PO DAILY atorvastatin 40 mg tablet 40 mg PO HS trazodone 50 mg tablet 50 mg PO HS PRN (Reason: insomnia) tizanidine 4 mg tablet 4 mg PO Q8H PRN (Reason: muscle spasticity) prednisone 20 mg tablet 10 mg PO DAILY omeprazole 40 mg capsule,delayed release(DR/EC) 40 mg PO DAILY aspirin 81 mg tablet,delayed release (DR/EC) 81 mg PO DAILY isosorbide mononitrate 30 mg tablet extended release 24 hr See Rx Instructions .ROUTE .COMPLEX Qty: 90 1RF Dose Instruction: TAKE 1 TABLET BY MOUTH IN THE MORNING Rx Instructions: TAKE 1 TABLET BY MOUTH IN THE MORNING propranolol 10 mg tablet See Rx Instructions .ROUTE .COMPLEX Qty: 360 0RF Dose Instruction: Take 2 tablets by mouth twice daily Rx Instructions: Take 2 tablets by mouth twice daily amlodipine 5 mg tablet 5 mg PO DAILY Qty: 90 0RF levothyroxine 75 mcg tablet See Rx Instructions .ROUTE .COMPLEX Qty: 90 0RF Dose Instruction: TAKE 1 TABLET BY MOUTH ONCE DAILY ON AN EMPTY STOMACH IN THE MORNING FOR 90 DAYS Rx Instructions: TAKE 1 TABLET BY MOUTH ONCE DAILY ON AN EMPTY STOMACH IN THE MORNING FOR 90 DAYS duloxetine 60 mg capsule,delayed release(DR/EC) 60 mg PO DAILY Qty: 90 1RF sulfasalazine 500 mg tablet See Rx Instructions .ROUTE .COMPLEX Qty: 360 1RF Dose Instruction: Take 2 tablets by mouth twice daily Rx Instructions: Take 2 tablets by mouth twice daily Date of admission: 10/23/24 15:42 Primary Care Provider: Migel Cruz Admitting Provider: Jose Larose Attending physician on admission: Bing Lamar Condition: Terminal Quality If No VTE Prophylaxis Answer both mechanical and pharmacologic: Reason no mechanical VTE proph: medical contraindication -Patient's previous records reviewed on admission -ER notes reviewed in detail on admission -discussed all findings and current treatment plan with patient/Family/POA -Consultations reviewed for recommendations -Patient's disposition for safe discharge discussed with case picker Dictation performed by [employer] direct speech recognition software, therefore form layer variants and typographical errors may occur. Hospitalist MIPS Heart Failure (Exclusion) Patient has history of Heart Transplant or Left Ventricular Assistive Device?: No IF YES, STOP HERE Heart Failure (Qualifier) Patient has current or prior documentation of LVEF less than or equal to 40%, or mod/servere depressed LVSF?: No IF NO, STOP HERE
--- NOTE | 2024-10-25 12:12 | PC.NURSE ---
Pt discharged to in pt hospice. Pt is unresponsive at this point.
--- OUTSIDE RECORDS SUMMARY | 2024-10-27 10:17 | XMS_ITS | Continuity of Care Document ---
Author Organization [facility] Address [address] [place] [address] [place] [address] Phone Care Team Providers Care Arboriculturist Name Role Phone Babatunde Ferreira MD Unavailable Unavailable Advance Directives Directive Yes / No Effective Date File Name No Information Encounters Encounter Description Practice Location Reason(s) For Visit Diagnoses Date Provider Providers Copied on Encounter [facility], [id number] [place] [address] [address], [place], [place], [id number], [place] tel:[phone] SEC Chris BAPTISTE Professional No Information May-0 3-200 0 Jhon Fine. [address] [facility] [address], [place], [place], [id number], [place]. tel:[phone] Family History Family Member Type Diagnosis Age At Onset No Information Payers Payer name Insurance type Covered libertarian ID Authoriza tion(s) [employer] SOI CI [id number] Social History Type Description Quantity Date Captured Comments Sex Female Smoking Status No Information Chief Complaint And Reason For Visit No Information Reason For Referral Reason For Referral No Information History Of Present Illness Encounter Date Complaint History Of Prese nt Illness No Information Functional Status Date Functional Assessmen t No Information Instructions Date Instruction Additional Infor mation No Information Assessments Type Assessment Date No Information Patient Care Teams Name Effective Dates (start - stop) Status Members No Information
--- OUTSIDE RECORDS SUMMARY | 2024-10-27 10:17 | XMS_ITS | Continuity of Care Document ---
Author Organization [facility] Address [address] [place] [id number] Phone Care Team Providers Care Ct Technologist Name Role Phone Vin BALLARDObed Unavailable Unavailable Allergies, Adverse Reactions, Alerts Substance Reaction Status Criticality MORPHINE HCL HivesHives Active No Information Medications Medication Instructions Dosage Effective Dates (start - stop) Status Comments AMLODIPINE BESYLATE (unknown strength) take 1 tablet by oral route every day Not Available - Active ATORVASTATIN CALCIUM (unknown strength) take 1 tablet by oral route every day Not Available - Active DILATRATE-SR (unknown strength) take 1 capsule by oral route every day Not Available - Active DULOXETINE HCL (unknown strength) take 1 capsule by oral route 2 times every day Not Available - Active TIZANIDINE HCL (unknown strength) take 1 capsule by oral route 3 times every day Not Available - Active LEVOTHYROXINE SODIUM (unknown strength) take 1 tablet by oral route every day Not Available - Active TRAZODONE HCL (unknown strength) take 1 tablet by oral route 2 times every day Not Available - Active PROPRANOLOL HCL ER (unknown strength) take 1 capsule by oral route every day Not Available - Active NEXIUM (unknown strength) take 1 capsule by oral route every day Not Available - Active ZANTAC (unknown strength) take 1 tablet by oral route every day Not Available - Active SULFASALAZINE (unknown strength) take 1 tablet by oral route 4 times every day after meals Not Available - Active Procedures Procedure Date Ophth Serv: Exam-eval; Interme 19 Advance Directives Directive Yes / No Effective Date File Name No Information Encounters Encounter Description Practice Location Reason(s) For Visit Diagnoses Date Provider Providers Copied on Encounter [facility], [address] [place] [address], [id number], [place] tel:[phone] [facility] 855 Other vitreous opacities, bilateralPresence of intraocular lensTear film insufficiency of bilateral lacrimal glands 9 Vin Clay. [address] [place] [address], [id number] , [place]. tel:[phone] Referring Provider: Obed Patel, [address] [place] [address], [id number] . tel:[phone] Family History Family Member Type Diagnosis Age At Onset Mother Problem (finding) malignant neop lasm of breast in first degree relative Payers Payer name Insurance type Covered alliance party ID Authoriza tion(s) [place] MB [id number] [facility] [id number] Social History Type Description Quantity Date Captured Comments Alcohol Use Details No Caffeine Use Details No Tobacco Use Status Ex-cigarette smoker 019 Smoking Status Former smoker Smoking Tobacco Use Details Cigarette: Age Started: 23, Age Stopped: 66, Years Used 44 Cigarette: 10 Cigarettes per day, Pack Year: 0.01 Sex Female Vital Signs Date / Time: Height Weight BMI Pulse Rate Blood Pressure Temperature Respiratory Rate Body Surface Area Head Circumference Head Circ. Percentile Wt./[place]. Percentile BMI percentile Pulse Ox Inhaled Ox 12:56 PM 65.50 in 78.471 kg (173.00 lbs) 28.3 5 kg/m eter (2) 77 /min 157/84 mm[Hg] Chief Complaint And Reason For Visit No Information Reason For Referral Reason For Referral No Information History Of Present Illness Encounter Date Complaint History Of Prese nt Illness No Information Functional Status Date Functional Assessmen t No Information Instructions Date Instruction Additional Infor alena - at's 4-6x/day ou. gel at's qhs ou. otc omega iii. monitor. Related to Tear film insufficiency of bilateral lacrimal glands - no retinal hole/te ar/break observed od. pt ed of sn/sx of rd.....rtc immediately if occurs. monitor. Related to Other vitreous opacities, bilateral - pciol centered ou. s/p yag ou. monitor. Related to Presence of intraocular lens Assessments Type Assessment Date assessment Other vitreous opacities, bilate ral assessment Presence of intraocular lens Nov assessment Tear film insufficiency of bilat eral lacrimal glands Patient Care Teams Name Effective Dates (start - stop) Status Members No Information
--- OUTSIDE RECORDS SUMMARY | 2024-10-27 10:17 | XMS_ITS | Referral Summary ---
Author Organization [facility] Address [address] [place] [address] Care Team Providers Care Appeals Assistant Name Role Phone Jeremiah Kaur MD Primary Care Provider [phone] Encounters Date Type Department Care Team Description 08/01/2024 2:57 PM CDT - 08/01/2024 11:59 PM CDT Hospital Encounter [facility] [address] [place] [id number] Closed fracture of left hip, initial encounter ([facility]) Discharge Disposition: Discharge to home or self care 08/01/2024 3:30 PM CDT Office Visit [facility] [address] [place] [address] Advanced [facility] 6[address] [place] [address] [place] [address] Lavon Dawkins MD Closed fracture of left hip, initial encounter (HCC) (Primary Dx) from Last 3 Months Allergies Active Allergy Reactions Criticality Noted Date Comments Amoxicillin Rash Medium Blueberry Stomach upset,Nausea & Vomiting Low 02/22/2024 Levofloxacin Other (See comments) Low Reaction: insomnia, , Reaction: insomnia, Morphine Hives,Rash,Other (See comments),Nausea only,Vomiting Medium 01/01/2024 Reaction: Nausea, Vomiting, , , Reaction: Rash, , Reaction: Hives, , Reaction: Nausea, Vomiting, , Potassium Unknown Unknown per pt doesn't know of this allergy Sulfa (Sulfonamide Antibiotics) Rash,Other (See comments) Medium 01/01/2024 Reaction: Rash, , , , Reaction: Rash, , Medications aspirin 81 mg enteric coated tabletIndications:S mall vessel disease (HCC) Take 1 tablet (81 mg total) by mouth daily 90 tablet 3 03/19/20 23 Active Additional Information Patient taking differently:81 mg oralEvery morning, Indications: heart health, Informant: Self, Reported on 02/22/2024 atorvastatin (LIPITOR) 40 mg tabletIndications:S mall vessel disease (HCC) Take 1 tablet (40 mg total) by mouth daily 90 tablet 1 03/19/20 23 Active Additional Information Patient taking differently:40 mg oralNightly, Indications: hyperlipidemia, Informant: Self, Reported on 02/22/2024 predniSONE (DELTASONE) 20 mg tabletIndications:P MR Take 2 tablets (40 mg) by mouth every morning 12/24/19 24 Active omeprazole (PriLOSEC) 40 mg capsuleIndications: Treatment of Non-Bleeding Gastric Disorder Take 1 capsule (40 mg total) by mouth 2 (two) times a day 11/10/19 24 Active sulfaSALAzine (AZULFIDINE) 500 mg tablet Take 2 tablets (1,000 mg total) by mouth 2 (two) times a day Active amLODIPine (NORVASC) 5 mg tabletIndications:h ypertension Take 1 tablet (5 mg total) by mouth every morning 10/26/[address] (CYMBALTA) 60 mg capsuleIndications: Chronic Musculoskeletal Pain,Neuropathic Pain Take 1 capsule (60 mg total) by mouth every morning Active levothyroxine (SYNTHROID) 75 mcg tabletIndications:h ypothyroidism Take 1 tablet (75 mcg total) by mouth engineering professionals before breakfast Active tiZANidine (ZANAFLEX) 4 mg tablet Take 1 tablet (4 mg total) by mouth every 8 (eight) hours as needed for muscle spasms 12/28/19 24 Active traZODone (DESYREL) 50 mg tablet Take by mouth nightly as needed for sleep Active albuterol HFA (ProAir HFA) 90 mcg/actuation inhaler Active ergocalciferol (VITAMIN D) 50,000 unit capsule Take 1 capsule every week by oral route for 91 days. 10/04/20 18 Active isosorbide mononitrate ER (IMDUR) 30 mg 24 hr tablet Take 1 tablet (30 mg total) by mouth every morning 02/05/20 24 Active acetaminophen (TYLENOL) 325 mg tablet Take 2 tablets (650 mg total) by mouth every 6 (six) hours as needed for pain 06/21/20 Active losartan (COZAAR) 100 mg tablet Take 1 tablet (100 mg total) by mouth daily 06/22/20 Active apixaban (ELIQUIS) 2.5 mg tabletIndications:V TE Prophylaxis Following Ortho Surgery Take 1 tablet (2.5 mg total) by mouth 2 (two) times a day for 28 days 06/21/20 Active lidocaine (ASPERCREME) 4 % adhesive patch,medicated Place 1 patch on the skin daily 06/22/20 Active polyethylene glycol (MIRALAX) 17 gram packetIndications:c onstipation Take 1 packet (17 g total) by mouth daily 06/22/20 Active propranoloL (INDERAL) 20 mg tablet Take 1 tablet (20 mg total) by mouth 2 (two) times a day 06/21/20 Active senna-docusate (PERICOLACE) 8.6-50 mg Take 2 tablets by mouth 2 (two) times a day 06/21/20 Active oxyCODONE (ROXICODONE) 5 mg immediate release tabletIndications:P ain Take 1 tablet (5 mg total) by mouth every 4 (four) hours as needed for pain 20 tablet 06/22/20 Active Active Problems Problem Noted Date Diagnosed Date Malodorous urine 06/21/2024 Assessment & Plan (06/21/2024 11:02 AM CDT): - with incontinence - UA pending ABLA (acute blood loss anemia) 06/16/2024 Assessment & Plan (06/21/2024 8:29 AM CDT): - 06/15 OR with ortho, EBL 200 - Hgb 10 transition after OR to 6.7 received one unit rbc 06/16 -serial cbc - Pt refusing lab draw, continue education and encouragement - 06/18 Hgb 7.9 (8.0); no signs of bleeding, stable Fall 06/15/2024 Assessment & Plan (06/22/2024 8:10 AM CDT): #Fall - CT head: no intracranial process, no C spine fracture - Posterior disc protrusion at C6-C7 due to degenerative changes - syncopal etiology: TTE (06/16) Small LV chamber size with hyperdynamic EF 81%, normal global longitudinal strain. Prominent basal septal hypertrophy (sigmoid septum). Concentric remodeling. Mild LAE. Grade 2 diastolic dysfunction. Normal RV size and systolic function. Normal RA. Mild , FLORY 1.5 cm2, mean gradient 20 mm Hg, DVI 0.5. Mild TR. Small IVC c/w low normal RA pressure. The visualized abdominal aorta is normal in size. Est. PASP 36 mm Hg. Compared with the last study of 06/12/2014, the mild is new. --- 06/20 Discussed New Aortic Stenosis with pt and called her PCP Dr. Jeremiah Kaur - Carotid duplex (06/16) - The right internal carotid artery disease is consistent with a less than 50% stenosis. Atherosclerotic changes of the left internal carotid artery without hemodynamically significant Doppler findings. <50% stenosis by velocity ratio. 50-69% stenosis by peak systolic and end diastolic velocity. Normal, antegrade flow is noted in bilateral vertebral arteries. - Orthostatics -- positive 06/20 lying to sitting, no IV; encourage PO intake - Orthostatics -- repeat 06/21 negative - patient reports history of vertigo - Follow up with PCP for further work up and management Depression 06/15/2024 Assessment & Plan (06/15/2024 2:05 PM CDT): - cont home duloxetine Discharge planning issues 06/15/2024 Assessment & Plan (06/22/2024 8:10 AM CDT): - 06/15: New admission o/n, OR with ortho - 06/16 pending repeat cbc if stabilize then ready for dispo, ok to plan at this point - 06/19 Patient is medically stable for discharge, SW/CM updated. Discharge pending facility acceptance - SNF pending - 06/21-: Patient is medically stable for discharge, SW/CM updated. Discharge pending facility acceptance SNF Closed fracture of left hip, initial encounter 0 06/14/2024 Assessment & Plan (06/21/2024 8:26 AM CDT): - Ortho consult - OR 06/15 IMN L femur - WBAT LLE - Ancef x 24 hours - Dressing changes daily and as needed for soiling/drainage - DVT prophylaxis at discharge: Eliquis 2.5 mg by mouth BID x 4 weeks per Orthopedic Surgery guidelines - Pain control, PT/OT - Follow up scheduled on 07/25/[address] Dawkins located at [facility] - [facility] referral at discharge Systolic murmur 03/03/2024 Assessment & Plan (03/03/2024 8:01 AM CDT): No recent echo on file. Patient is aware of the murmur. Diplopia 04/02/2023 Overview (04/02/2023): -Referral from PCP for evaluation of diplopia- concern for microvascular ischemic disease -(-)DM or HTN - Recent MRI results as follows: No acute intracranial abnormality or finding to explain the patient's symptoms. 3 mm focus of diffusion hyperintensity in the left sella with no correlating lesion identified and otherwise normal appearing pituitary gland. Possibly artifactual although clinical correlation is needed and pituitary protocol MRI could be obtained for more definitive evaluated if clinically indicated. Moderate sequela of chronic microvascular ischemic disease. -ACT orthophoric distance and near Assessment & Plan (04/02/2023 4:02 PM CDT): After further questioning, diplopia only in OD, disappears when OD is closed but still present with OS closed. No strabismus or EOM restriction. Cornea and PCIOL clear. ERM OD>OS w/ pseudohole OD leading to patient symptoms. See under epiretinal membrane for further assessment and plan. Epiretinal membrane (ERM) of both eyes 3 Overview (10/23/2023): -Pt initially referred from PCP for evaluation of diplopia- concern for microvascular ischemic disease -No DM or HTN -Recent MRI results as follows: No acute intracranial abnormality or finding to explain the patient's symptoms. 3 mm focus of diffusion hyperintensity in the left sella with no correlating lesion identified and otherwise normal appearing pituitary gland. Possibly artifactual although clinical correlation is needed and pituitary protocol MRI could be obtained for more definitive evaluated if clinically indicated. Moderate sequela of chronic microvascular ischemic disease. -ACT orthophoric distance and near -No EOM restrictions -Diplopia present only w/ OD open; disappears when OD is closed but still present if OS is closed. -ERM OD w/ pseudohole OD likely cause of pts symptoms. Inferior ERM OS- asymptomatic Assessment & Plan (04/15/2024 11:33 AM CDT): POM1 S/p ppv mp doing well Limited choroidals now resolved, will taper PF OCT with no residual central ERM/traction, VA may be limited by atrophic appearance of retina Observe for now RTC 2 mos for DFE, OCT Assessment & Plan (03/11/2024 10:37 AM CDT): S/p ppv mp doing well Limited choroidal serous OD, discussed with patient No heavy lifting or strenuous activity Sleep with shield ER warnings given Assessment & Plan (03/04/2024 9:41 AM CDT): POD1 status post PPV/MP/FAx to the right eye on 03/02/24 for ERM OD. Heme in AC today limiting view posteriorly. IOP remains OK. Shield operated eye, tobramycin and prednisolone drops QID (allergy to FQs). She already sleeps on a reclined bed and so will have her maintain this upright positioning for now until next week as well. Return to clinic in one week. Signs and symptoms of retinal detachment, tears and endophthalmitis, elevated pressure reviewed with patient. Post Op Position:None. No strenuous activity. Assessment & Plan (01/01/2024 11:58 AM CDT): ERM OD > OS Patient is miserable with the diplopia which is monocular and is closing her eye constantly OD surgery and goals discussed, will need general due to tremor Risks, benefits, alternatives were discussed with patient including but not limited to infection, bleeding, retinal detachment, damage to eye, loss of vision, loss of eye, deformity, double vision, increased pressure in the eye, cataract progression, inflammation in the eye that can spread to the other eye, postoperative positioning, altitude/travel precautions should gas bubble injection be required, the guarded prognosis for vision, the potential need for further procedures, and that no guarantees can be made. The patient understands these risks and all questions were answered. The patient then elected to proceed OD. Assessment & Plan (10/23/2023 3:53 PM PUBLIC RELATIONS ACCOUNT SUPERVISOR): Educated pt, VA slightly improved OD compared to previous visit however pt subjectively feels vision is worse. She is very bothered by the distortion in her vision and motivated for surgery. Schedule next available with retina for evaluation. Assessment & Plan (04/02/2023 4:03 PM CDT): Educated patient on findings and cause for diplopia symptoms OD. Discussed options including monitoring vs retina evaluation for sx. Recommended re-evaluation in 6 months, pt agrees. Monitor w/ DFE and OCT mac. Letter sent to PCP regarding findings. Pseudophakia of both eyes 04/02/2023 Assessment & Plan (10/23/2023 3:36 PM PUBLIC RELATIONS ACCOUNT SUPERVISOR): Monitor. Assessment & Plan (04/02/2023 4:04 PM CDT): Clear and centered, monitor. Primary parkinsonism 08/24/2021 Assessment & Plan (11/29/2021 4:50 PM PUBLIC RELATIONS ACCOUNT SUPERVISOR): ?? Start carbidopa-levodopa 25-100 TID; OK to refuse if patient endorses side effects (dizziness, nausea, hypotension) ?? Can consider amantadine as a second line agent ?? Physical therapy for gait and balance training, transfers, 2 times per week; to be timed 1-2 hours after Sinemet administration Assessment & Plan (08/24/2021 8:25 AM PUBLIC RELATIONS ACCOUNT SUPERVISOR): Idiopathic Parkinson disease ?? She will discuss discontinuing metoclopramide with Dr. Kaur ?? If it is safe to discontinue metoclopramide, we will start Sinemet 25/100 TID; patient should be monitored for 2 hours after administration for: nausea, hypotension. Please check vital signs frequently during this time period. ?? Referral to Movement Disorders for pharmacologic recommendations regarding Parkinsonism in setting of frequent nausea ?? Referral to PT for Parkinsonism; will fax to NH ?? Can discontinue propranolol and monitor for worsening of tremor, given less suspicion for concomitant essential tremor (although this is certainly possible if the tremor is well controlled during my evaluation today) Angina pectoris with documented spasm ([facility]) 02/11/2021 Crohn's disease, unspecified, with rectal bleedi ng 02/11/2021 Arthritis of knee 12/13/2014 Overview (01/09/2017): Patellofemoral arthritis Angina pectoris 10/02/2014 Atrial premature depolarization 10/02/2014 Hyperlipidemia 06/20/2014 Assessment & Plan (06/15/2024 2:03 PM CDT): - Continue home statin Chest pain 06/12/2014 Lupus erythematosus 06/12/2014 Hypertension 06/12/2014 Assessment & Plan (06/21/2024 8:20 AM CDT): - continue home amlodipine - hold home losartan, isosorbide mononitrate - 06/19 Hypertensive overnight, restarting home losartan - 06/20 Resume Isosorbide 30mg Chronic obstructive pulmonary disease 06/02/2014 Overview (01/09/2017): COPD (chronic obstructive pulmonary disease) Myopathy 02/18/2014 Overview (01/07/2017): MYALGIA AND MYOSITIS NOS Malaise and fatigue 02/18/2014 Overview (01/09/2017): MALAISE AND FATIGUE NEC Systemic lupus erythematosus ([facility]) 4 Overview (01/09/2017): SYST LUPUS ERYTHEMATOSUS Rheumatoid arthritis 02/18/2014 Overview (01/09/2017): RHEUMATOID ARTHRITIS Assessment & Plan (06/15/2024 2:04 PM CDT): #Polymyalgia rheumatica - chronic bilateral shoulder and knee pain - continue home prednisone and sulfasalazine History of substance abuse ([facility]) 02/18/2014 Overview (01/09/2017): HISTORY OF TOBACCO USE Asthma 02/18/2014 Overview (01/09/2017): ASTHMA NOS Drug indicated 08/17/2012 Overview (01/09/2017): LONG-TERM USE MEDS NEC Immunizations Name Administration Dates Next Due Influenza, Split 09/10/2010 Pneumococcal Polysaccharide PPV23 10/05/2008 ZOSTER LIVE 05/21/2011 Social History Tobacco Use Types Packs/Day Years Used Date Smoking Tobacco: Former Cigarettes 0.5 20 1 980 - 2000 Tobacco Cessation:Counseling Given: Not Answered Alcohol Use Standard Drinks/Week Comments No 0 (1 standard drink = 0.6 oz pur e alcohol) AUDIT-C Answer Date Recorded Q1: How often do you have a drink containing alcohol? Never 02/25/2024 Q2: How many drinks containi ng alcohol do you have on a typical day when you are drinking? Patient does not drink Q3: How often do you have si x or more drinks on one occasion? Never 02/25/2024 Personal Safety Answer Date Recorded Have you ever been in or are you currently in a harmful physical or emotional relationship or is someone making you feel afraid or unsafe? Denies 06/14/2024 Comments No Sex and Gender Information Value Date Recorded Sex Assigned at Not on file Legal Sex Female 11:26 AM PUBLIC RELATIONS ACCOUNT SUPERVISOR Gender Identity Not on file Sexual Orientation Not on file Last Filed Vital Signs Vital Sign Reading Time Taken Comments Blood Pressure 133/48 06/22/2024 11:35 AM CDT Pulse 85 06/22/2024 11:35 AM CDT Temperature 36.8 ??C (98.2 ??F) 06/22/2024 1 1:35 AM CDT Respiratory Rate 16 06/22/2024 11:3 5 AM CDT Oxygen Saturation 93% 06/22/2024 11: 35 AM CDT Inhaled Oxygen Concentration - - Weight 69.4 kg (152 lb 14.4 oz) 06/15/2024 6:03 AM CDT Height 165.1 cm (5' 5 ) 06/15/2024 6:03 AM CDT Body Mass Index 25.44 06/15/2024 6:03 AM CDT Plan of Treatment Not on file Medical Devices Implanted Type Area Emergency Planner Device Identifier Shelf Expiration Date Model / Serial / Lot Synthes Tfn-Advanced Lateral Relief Cut 11mm 400mm Cannulated Femoral 04.037.161s - [id number] Implanted:Qty: 1 on 06/15/2024 by Lavon Dawkins MD at [facility] Left: Femur Synthes I [id number] 03/04/2034 04.037.161 S / / [id number] Synthes Tfn-Advanced 10.35mm 80mm Cannulated 3.5mm Screw Bone [id number] 04.038.180s - [id number] Implanted:Qty: 1 on 06/15/2024 by Lavon Dawkins MD at [facility] Synthes I 04.038.180 S / / Synthes Screw Bone Locking Cannulated Femoral Proximal Full Thread Light Green 5.0x42mm Titanium 04.045.042 - [id number] Implanted:Qty: 1 on 06/15/2024 by Lavon Dawkins MD at [facility] Synthes I 04.045.042 / / Synthes Screw Bone Locking Cannulated Femoral Proximal Full Thread Light Green 5.0x38mm Titanium 04.045.038 - [id number] Implanted:Qty: 1 on 06/15/2024 by Lavon Dawkins MD at [facility] Synthes I 04.045.038 / / Procedures Procedure Name Priority Date/Time Associated Diagnosis Comments XR FEMUR LEFT 2 OR MORE VIEWS Schedule Routine, Read Routine (OP Routine) 08/01/2024 3:17 PM CDT Closed fracture of left hip, initial encounter (HCC) from Last 3 Months Results * XR Femur Left 2 or More Views (08/01/2024 3:17 PM CDT) Anatomical Region Laterality Modality Lower Extremities, Thigh, Femur Left Computed Radiography 08/01/2024 3:27 PM CDT Impressions 08/01/2024 3:27 PM CDT 1. ??Healing, reduced and nailed intertrochanteric fracture of the proximal left femur Electronically signed by: Prabhakar Hernández MD Narrative 08/01/2024 3:27 PM CDT EXAMINATION: XR FEMUR LEFT 2 OR MORE VIEWS HISTORY: ??Left femur fracture, follow-up FINDINGS: 4 radiographs of the left femur are compared to 06/15/2024. There is a healing, reduced and nailed intertrochanteric fracture of the proximal left femur. ??A left total knee arthroplasty is in expected position. ??No acute periprosthetic fracture is identified on the submitted images. ??No significant effusion. ??Vascular calcifications and a calcified pelvic mass are demonstrated. Surgical skin eleazar and procedure related soft tissue gas are no longer present. Procedure Note Ruthie Hernández MD - 08/01/2024 EXAMINATION: XR FEMUR LEFT 2 OR MORE VIEWS HISTORY: Left femur fracture, follow-up FINDINGS: 4 radiographs of the left femur are compared to 06/15/2024. There is a healing, reduced and nailed intertrochanteric fracture of the proximal left femur. A left total knee arthroplasty is in expected position. No acute periprosthetic fracture is identified on the submitted images. No significant effusion. Vascular calcifications and a calcified pelvic mass are demonstrated. Surgical skin eleazar and procedure related soft tissue gas are no longer present. IMPRESSION: 1. Healing, reduced and nailed intertrochanteric fracture of the proximal left femur Electronically signed by: Prabhakar Hernández MD Lavon Dawkins MD IMG XR PROCEDURE S Final Result from Last 3 Months Insurance MEDICARE MEDICARE MEDICARE [facility] Advance Directives For more information, please contact: [phone] * Full Code (Latest Code Status on File) Date Activated Date Inactivated Comments 06/15/2024 4:09 PM 06/22/2024 7:39 PM * Full Code Date Activated Date Inactivated Comments 06/15/2024 12:13 AM 06/15/2024 4:09 PM Care Teams Appeals Assistant Relationship Specialty Start Date End Date Jeremiah Kaur MD [address] [place] [address] PCP - General 12/22/08
--- OUTSIDE RECORDS SUMMARY | 2024-10-27 10:17 | XMS_ITS | Clinical Summary ---
Author Organization [facility] Address [address] [place] [address] Care Team Providers Care Materials Handling Coordinator Name Role Phone Jeremiah Kaur MD Primary Care Provider [phone] Allergies Active Allergy Reactions Criticality Noted Date [...] 1 tablet (75 mcg total) by mouth brick machine operator before breakfast Active tiZANidine (ZANAFLEX) 4 mg [...] (six) hours as needed for pain 06/21/20 24 Active losartan (COZAAR) 100 mg tablet Take 1 tablet (100 mg total) by mouth daily 06/22/20 24 Active apixaban (ELIQUIS) 2.5 mg tabletIndications:V TE Prophylaxis Following Ortho Surgery Take 1 tablet (2.5 mg total) by mouth 2 (two) times a day for 28 days 06/21/20 24 Active lidocaine (ASPERCREME) 4 % adhesive patch,medicated Place 1 patch on the skin daily 06/22/20 24 Active polyethylene glycol (MIRALAX) 17 gram packetIndications:c [...] as needed for pain 20 tablet 06/22/20 24 Active Active Problems Problem Noted Date Diagnosed [...] on 07/25/[address] Dawkins located at [facility] - Bone [facility] referral at discharge Systolic murmur 03/03/2024 [...] plan. Epiretinal membrane (ERM) of both eyes Overview (10/23/2023): -Pt initially referred from PCP [...] OD. Assessment & Plan (10/23/2023 3:53 PM TECHNICAL REP): Educated pt, [facility] slightly improved OD compared [...] 04/02/2023 Assessment & Plan (10/23/2023 3:36 PM TECHNICAL REP): Monitor. Assessment & Plan (04/02/2023 4:04 PM CDT): Clear and centered, monitor. Primary parkinsonism 08/24/2021 Assessment & Plan (11/29/2021 4:50 PM TECHNICAL REP): ?? Start carbidopa-levodopa 25-100 TID; OK to refuse if patient endorses side effects (dizziness, nausea, hypotension) ?? Can consider amantadine as a second line agent ?? Physical therapy for gait and balance training, transfers, 2 times per week; to be timed 1-2 hours after Sinemet administration Assessment & Plan (08/24/2021 8:25 AM TECHNICAL REP): Idiopathic Parkinson disease ?? She will discuss [...] evaluation today) Angina pectoris with documented spasm ([facility]) 02/11/2021 Crohn's disease, unspecified, with rectal bleedi [...] MALAISE AND FATIGUE NEC Systemic lupus erythematosus ([facility]) 4 Overview (01/09/2017): SYST LUPUS ERYTHEMATOSUS Rheumatoid arthritis 02/18/2014 Overview (01/09/2017): RHEUMATOID ARTHRITIS Assessment & Plan (06/15/2024 2:04 PM CDT): #Polymyalgia rheumatica - chronic bilateral shoulder and knee pain - continue home prednisone and sulfasalazine History of substance abuse ([facility]) 02/18/2014 Overview (01/09/2017): HISTORY OF TOBACCO USE Asthma 02/18/2014 Overview (01/09/2017): ASTHMA NOS Drug indicated 08/17/2012 Overview (01/09/2017): LONG-TERM USE MEDS NEC Encounters Date Type Department Care Team Description 08/01/2024 3:30 PM CDT Office Visit [facility] Orthopaedic Surgery [address] 6th [place] [address] [place] [address] Lavon Dawkins MD Closed fracture of left hip, initial encounter ([facility]) (Primary Dx) 08/01/2024 2:57 PM CDT - 08/01/2024 11:59 PM CDT Hospital Encounter [facility] [address] [place] [address] Closed fracture of left hip, initial encounter ([facility]) Discharge Disposition: Discharge to home or self care from Last 3 Months Immunizations Name Administration Dates Next Due Influenza, Split 09/10/2010 Pneumococcal Polysaccharide PPV23 10/05/2008 ZOSTER LIVE 05/21/2011 Surgical History Surgery Date Site/Laterality Comments OTHER SURGICAL HISTORY 1979 D&C TONSILLECTOMY 1950 Tonsillectomy OTHER SURGICAL HISTORY 10/05/1967 - 10/04/1968 ovarian cysts removed ; CHOLECYSTECTOMY 10/05/1980 - 10/04/1981 gall bladder removed OTHER SURGICAL HISTORY 10/05/1987 - 10/04/1988 repair synovial plica left knee OTHER SURGICAL HISTORY 10/05/1988 - 10/04/1989 Left reposition left knee cap OTHER SURGICAL HISTORY carpal tunnel releases ; unknown date OTHER SURGICAL HISTORY reposition nerve at left elbow; unknown date CERVICAL FUSION 10/05/1996 - 10/04/1997 cervical fusion - anterior OTHER SURGICAL HISTORY 10/05/2000 - 10/04/2001 lumnbar disk surgery KNEE ARTHROPLASTY Left Knee replacement unknown date APPENDECTOMY 10/05/1980 - 10/04/1981 BREAST SURGERY 10/05/1979 - 10/04/1980 benign CATARACT EXTRACTION W/ INTRAOCULAR LENS IMPLANT VAGINAL DELIVERY x 3 VITRECTOMY 03/03/2024 Right PPV/MP/AFX Medical History Medical History Date Comments Hx Other Medical 1968 removal of non- cancerous ovarian cyst Hx Other Medical 1979 removal of non cancerous cyst from breast Hx Other Medical 1980 gall bladder an d appendix removal Hx Other Medical 1987 synivial plica repaired Hx Other Medical 1988 repositioning o f left knee cap Hx Other Medical 1996 spinal fusion i n neck Hx Other Medical 2000 repair of herni ated lumbar disc Asthma Asthma Hypertension Hypertension Depression Depression Osteoarthritis Osteoarthritis Hx Other Medical -RHEUMATOLOGI ST Gastroesophageal reflux disease GERD Hypercholesterolemia High choles terol; Comments: [facility] 12/13/2014 - Hx Other Medical systemic lupus; Comments: [facility] 12/13/2014 - Hx Other Medical gallbladder; Co mments: [facility] 12/13/2014 - Hx Other Medical synovial plica repair 1987; Comments: [facility] 12/13/2014 - Hx Other Medical left knee cap r epoistion 1988; Comments: [facility] 12/13/2014 - Hx Other Medical Cervicle fusion 1997; Comments: [facility] 12/13/2014 - Hx Other Medical Lumbar Diskecto my 2000; Comments: [facility] 12/13/2014 - Hx Other Medical Lumbar Diskecto my 2001; Comments: [facility] 12/13/2014 - Epiretinal membrane (ERM), bilateral Family History Medical History Relation Name Comments Heart disease Brother 2 Heart disease; Diabetes Brother 3 Diabetes mellit us; Coronary artery disease Father Pam nary artery disease; Heart disease Father Heart disease; Cause of : Heart disease Breast cancer Mother Cancer -breast ; Lung cancer Mother Cancer -lung; Diabetes type II Other 1 Family hist ory of Diabetes mellitus type 2; Heart disease Other 2 Family history of Congenital heart disease; Heart failure Other 3 Family history of Congestive heart failure; Hypertension Other 4 Family history of Hypertension; Thyroid disease Other 5 Family histo ry of Thyroid disorder; Anesthesia problems Neg Hx Relation Name Status Comments Brother 1 Alive Brother 2 Brother 3 Father (Age 70) Mother (Age 52) Other 1 Other 2 Other 3 Other 4 Other 5 Social History Tobacco Use Types Packs/Day Years [...] on file Legal Sex Female 11:26 AM TECHNICAL REP Gender Identity Not on file Sexual Orientation Not on file Obstetrics History Last Filed Vital Signs Vital Sign Reading [...] 06/15/2024 6:03 AM CDT Plan of Treatment Health Maintenance Due Date Last Done Comments Depression Screening 1945 Hepatitis C Screening 1945 Osteoporosis Screening-Bone Density Scan 1945 DTaP/Tdap/Td Vaccine (1 - Tdap) 1957 Hepatitis B Screening 1964 Pneumococcal vaccine 65+ (2 of 2 - PCV) 10/05/2009 10/05/2008 Well Visit 65+ 2011 Zoster Vaccine (2 of 3) 07/16/2011 05/21/2011 Covid-19 Vaccine (2023-2 5 season) 2024 04/25/2022, 08/20/2021, 02/08/2021, Additional history exists Influenza Vaccine (#1) 2024 , 09/12/2019, 07/05/2018, Additional history exists Fall Risk Assessment 06/22/2025 06/22/2024 Medical Devices Implanted Type Area Log Processor Operator Device Identifier Shelf Expiration Date Model / Serial / Lot Synthes Tfn-Advanced Lateral Relief Cut 11mm 400mm Cannulated Femoral 04.037.161s - [id number] Implanted:Qty: 1 on 06/15/2024 by Lavon Dawkins MD at [facility] Left: Femur Synthes I [id number] 03/04/2034 04.037.161 S / / [id number] Synthes Tfn-Advanced 10.35mm 80mm Cannulated 3.5mm Screw Bone [id number] 04.038.180s - [id number] Implanted:Qty: 1 on 06/15/2024 by Lavon Dawkins MD at [facility] Synthes I 04.038.180 S / / Synthes Screw Bone Locking Cannulated Femoral Proximal Full Thread Light Green 5.0x42mm Titanium 04.045.042 - [id number] Implanted:Qty: 1 on 06/15/2024 by Lavon Dawkins MD at [facility] Synthes I 04.045.042 / / Synthes Screw Bone Locking Cannulated Femoral Proximal Full Thread Light Green 5.0x38mm Titanium 04.045.038 - [id number] Implanted:Qty: 1 on 06/15/2024 by Lavon Dawkins MD at [facility] Synthes I 04.045.038 / / Procedures [...] Last 3 Months Insurance MEDICARE MEDICARE MEDICARE IDPA Advance Directives For more information, please contact: [phone] * Full Code (Latest Code Status on File) Date Activated Date Inactivated Comments 06/15/2024 4:09 PM 06/22/2024 7:39 PM * Full Code Date Activated Date Inactivated Comments 06/15/2024 12:13 AM 06/15/2024 4:09 PM Care Teams Materials Handling Coordinator Relationship Specialty Start Date End Date Jeremiah Kaur MD [address] [place] [address] PCP - General 12/22/08
--- OUTSIDE RECORDS SUMMARY | 2024-10-27 10:17 | XMS_ITS | Encounter Summary ---
Author Organization [facility] Address [address] [place] [address] Phone Care Team Providers Care Administrator Of Home Health Name Role Phone Jeremiah Kaur MD Primary Care Provider [phone] Encounter Details Date Type Department Care Team (Late st Contact Info) Description 04/03/2022 Telephone [facility] Scheduling [address] [place], [place] [id number] Ebony Willard Social History Tobacco Use Types Packs/Day Years Used Date Smoking Tobacco: Former Alcohol Use Standard Drinks/Week Comments No 0 (1 standard drink = 0.6 oz pur e alcohol) Comments Unknown Sex and Gender Information Value Date Recorded Sex Assigned at Not on file Legal Sex Female 11:26 AM MANAGER TALENT Gender Identity Not on file Sexual Orientation Not on file documented as of this encounter Plan of Treatment Not on file documented as of this encounter Visit Diagnoses Not on filedocumented in this encounter Care Teams Administrator Of Home Health Relationship Specialty Start Date End Date Jeremiah Kaur MD [address] [place] [address] PCP - General 12/22/08 documented as of this encounter
== END 2024-10-25 10:50 | disposition hospice, inpatient (51) | DRG 535 ==
LOC: CHSED 11:22 → CHS2ND 15:50
PROVIDERS: Admitting Provider Internal Medicine; Emergency Provider Emergency Medicine; PCP Family Medicine; Visit Provider Nurse Practitioner Family
DX: S72.001A Fracture of unspecified part of neck of right femur, initial encounter for closed fracture (principal); I26.99 Other pulmonary embolism without acute cor pulmonale; J18.9 Pneumonia, unspecified organism; J96.01 Acute respiratory failure with hypoxia; E78.5 Hyperlipidemia, unspecified; E03.9 Hypothyroidism, unspecified; G20.A1 Parkinson's disease without dyskinesia, without mention of fluctuations; K21.9 Gastro-esophageal reflux disease without esophagitis; K50.90 Crohn's disease, unspecified, without complications; M32.9 Systemic lupus erythematosus, unspecified; M35.3 Polymyalgia rheumatica; M19.90 Unspecified osteoarthritis, unspecified site; F32.5 Major depressive disorder, single episode, in full remission; W05.0XXA Fall from non-moving wheelchair, initial encounter; Z96.652 Presence of left artificial knee joint; Z98.1 Arthrodesis status; Z87.891 Personal history of nicotine dependence; Z91.81 History of falling; Z99.3 Dependence on wheelchair; Z79.82 Long term (current) use of aspirin; Z51.5 Encounter for palliative care
CPT/HCPCS: 36415; 36600; 70450; 71045; 71275; 72125; 72170; 73562; 80053; 82805; 83605; 83735; 83880; 85018; 85025; 85610; 85730; 87040; 93005; 96372; 99285; A9270; J1171; J2060; J7030; Q9967

== ENCOUNTER 2024-10-25 10:51 | HOS | payer OTHER, SELFPAY ==
[2024-10-25 12:00] VITALS: O2SAT 93
[2024-10-25] MEDS: HYDROmorphone HCL INJ (*CRX) 2 MG/ML VIAL 0.5 MG IV PUSH ×2 (17:00→21:00)
[2024-10-25 21:39] VITALS: TEMP 38.6
[2024-10-25] MEDS: ACETAMINOPHEN 650 MG SUPPOSITORY RECTAL (21:39)
[2024-10-25 22:10] VITALS: TEMP 38.6
--- NOTE | 2024-10-25 22:41 | PC.NURSE ---
Patient T/P Q2H. Temp 102.5, Tylenol suppository given and cool cloth applied to head. Output 75cc
[2024-10-26] MEDS: HYDROmorphone HCL INJ (*CRX) 2 MG/ML VIAL 0.5 MG IV PUSH ×4 (01:05→13:27)
[2024-10-26 04:13] VITALS: TEMP 38.3
[2024-10-26] MEDS: ACETAMINOPHEN 650 MG SUPPOSITORY RECTAL (04:13)
--- NOTE | 2024-10-26 04:20 | PC.NURSE ---
Pt's temp is 100.9 so she was given a tylenol suppository 650 mg to relieve fever. Pt was also given dilaudid 0.5 mg IVP to relieve discomfort.
--- NOTE | 2024-10-26 04:25 | PC.NURSE ---
Pt turned and repositioned to her back.
--- NOTE | 2024-10-26 06:05 | PC.NURSE ---
Pt turned and repositioned to her side. Temp is 100.1.
[2024-10-26 08:00] VITALS: PULSE 135; RESP 16; TEMP 37.3; O2SAT 93
[2024-10-26] MEDS: LORazepam INJ (*CRX) 2 MG/ML VIAL 0.5 MG IV PUSH (11:13)
--- NOTE | 2024-10-26 11:56 | PM.SD2 ---
Same Day Admit/Disch: HPI History of Present Illness Chief complaint: IP TO HOSPICE Narrative: Cristy Duckworth is a 79 year old female who was brought in to the ER via EMS after reports that [facility]. she was found to have an oxygen saturation of 87% on room air and CTA of the chest was positive for pulmonary embolism and pneumonia. She also has a right femoral neck fracture from the fall. the ER physician spoke with the patient's daughter who is the ceuka-hj-dzmymiss and she is requesting comfort care in consult to hospice. She was admitted for hospice referral. Patient was placed on comfort measures only. [facility] was consulted. [facility] Past Medical History Medical History Polymyalgia rheumatica Parkinsonism Insomnia due to medical condition Parkinson's disease Crohn's disease, unspecified, without complications Major depression in full remission Hyperlipidemia, unspecified Hypothyroidism, unspecified Angina pectoris with documented spasm Kidney stones SLE (systemic lupus erythematosus related syndrome) On sulfasalazine Urge urinary incontinence Shoulder fracture, left Arthritis GERD (gastroesophageal reflux disease) Surgical History Surgical History History of left knee replacement History of appendectomy Hx of cholecystectomy History of bilateral carpal tunnel release S/P cubital tunnel release Left History of lumbar fusion Hx of fusion of cervical spine History of carpal tunnel release Family History Family History Mother Breast cancer BRCA gene positive Daughter Rheumatoid arthritis Cervical cancer Vitiligo Asthma Father Acute myocardial infarction Sibling Diabetes mellitus Sister Atrial fibrillation Brother Son Melanoma Social History Social History Social History: Primary care physician: Dr. Jeremiah Kaur Code status: Full code Smoking packs per day: 1 Smoking cigarettes per day: 20.0 Years smoked: 25 Smoking pack-years: 25.00 Smoking status: Former smoker Tobacco type: cigarettes Second hand tobacco smoke exposure: No Smoking end date: 10/23/04 Alcohol intake: never Substance use: never Do You Feel Safe in your Home?: Yes Lack of Transportation: No Lack of Food: Never True Current Housing: I Have Housing Concerned About Future Housing: No Difficulty Paying Gas/Electric Bills: No Difficulty Paying for Meds: No Currently Unemployed: YES Education: High School Diploma/GED Difficulty w/ Childcare or Family Care: No Living arrangements: with family Additional living arrangements comments: The patient lives in [place] with her . She ambulates with a cane. 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 Gender identity (if verbalized by the patient): Female Sexual Orientation (if Verbalized by the Patient): Straight or Heterosexual Spiritual care concerns: No Agree to blood products: No Same Day Admit/Disch: Med Pre-admit Medications Home Medications ?Medication ?Instructions ?Recorded ?Confirmed ?Type No Home Medications 10/25/24 10/25/24 History Review of Systems Review of Systems ROS unobtainable: Yes unobtainable due to mental status Exam Narrative: General: Unresponsive Head: atraumatic, no encephalopathy Eyes: PERRLA, sclera clear ENT: dry mucous membranes, nasal passages clear Neck: supple, no JVD, no adenopathy, trachea midline Cardiac: Normal S1 and S2. No murmur, gallops or friction rubs, peripheral pulses intact. Respiratory: very coarse lung sounds, diminished in the bases, currently on 2 L nasal cannula with use of accessory muscles Gastrointestinal: soft, non-distended, non-tender, hypoactive bowel sounds. : Mora catheter in place draining ronnie colored urine Neuro: unresponsive DS: Data Data Completed and Pending Completed studies during hospitalization: chest CTA knee x-ray pelvis x-ray chest x-ray knee x-ray cervical spine CT head CT Pending studies at discharge: none Procedures/Treatments: none DS: Summary Hospital Course Reason for hospitalization: admission for hospice care comfort measures only Hospital Course: This is a 79 year old female who was brought in to the ER via EMS after reports that [facility]. she was found to have an oxygen saturation of 87% on room air and CTA of the chest was positive for pulmonary embolism and pneumonia. she was started on 2L NC. She also has a right femoral neck fracture from the fall. the ER physician spoke with the patient's daughter about all of these above findings and she is requesting comfort care in consult to hospice. She was admitted for hospice referral. Patient was placed on comfort measures only while inpatient. [facility] was consulted and case coordination arranged for transfer back to her facility on hospice. She is ok for discharge at this time. final diagnosis: acute respiratory failure with hypoxia, community-acquired pneumonia, sepsis Status at Discharge Cognitive/behavioral status at discharge: unresponsive Functional status at discharge: bed bound Overall status at discharge: patient is not back to baseline Time Spent with Patient Time attestation: Total time spent providing and/or coordinating discharge services: Time spent: Greater than 30 minutes DS: Admitting Diagnosis Discharge Date 10/26/24 Admitting Diagnosis admission for hospice care comfort measures only Discharge Plan Discharge Attending physician on discharge: Jose Larose Discharging Clinician: Vera Ocasio Anticipated Discharge Date/Time: 10/26/24 12:04 Patient Disposition: Hospice - Home Activity: as tolerated Diet: as tolerated and regular Discharge Instructions: Discharge with [facility] Patient Language: Bulgarian Discharge Medications: Continued No Home Medications Date of admission: 10/25/24 10:51 Primary Care Provider: Migel Cruz Admitting Provider: Jose Larose Attending physician on admission: Vera Ocasio Condition: Terminal Hospitalist MIPS Advance Care Plan I have confirmed that the patient's Advanced Care Plan is present, code status is documented, or surrogate decision maker is listed in patient medical record.: Yes Medication Reconciliation I have utilized all available resources to obtain, update and review the patients current medications (includes all prescriptions, OTC, herbals, cannabis, and nutritional supplements).: Yes Heart Failure (Exclusion) Patient has history of Heart Transplant or Left Ventricular Assistive Device?: No IF YES, STOP HERE Heart Failure (Qualifier) Patient has current or prior documentation of LVEF less than or equal to 40%, or mod/servere depressed LVSF?: No IF NO, STOP HERE
--- NOTE | 2024-10-26 14:08 | PC.NURSE ---
AMBULANCE PAGED FOR RETURN TRIP TO CORRECTION FOR HOSPICE,
--- OUTSIDE RECORDS SUMMARY | 2024-10-27 18:10 | XMS_ITS | Continuity of Care Document ---
Author Organization [facility] Address [address] [place] [address] Phone Care Team Providers Care Physical Therapy Director Name Role Phone Vin BALLARDObed Unavailable Unavailable [...] Diagnoses Date Provider Providers Copied on Encounter [facility], [address] [place] [address], [id number], [place] tel:[phone] [facility] [address] Other vitreous opacities, bilateralPresence of intraocular lensTear film insufficiency of bilateral lacrimal glands 9 Vin Clay. [address] [place] [address], [id number] , [place]. tel:[phone] Referring Provider: Obed Patel, [address] [place] [address], [id number] . tel:[phone] Family History Family Member Type Diagnosis Age At Onset Mother Problem (finding) malignant neop lasm of breast in first degree relative Payers Payer name Insurance type Covered alliance party ID Authoriza tion(s) Medicare [place] [id number] [facility] [id number] Social History Type Description Quantity Date Captured [...]
--- OUTSIDE RECORDS SUMMARY | 2024-10-27 18:10 | XMS_ITS | Continuity of Care Document ---
Author Organization [facility] Address [address] [place] [address] [address] [place] [address] Phone Care Team Providers Care Log Clerk Name Role Phone Babatunde Ferreira MD Unavailable Unavailable Advance Directives Directive Yes / No Effective Date File Name No Information Encounters Encounter Description Practice Location Reason(s) For Visit Diagnoses Date Provider Providers Copied on Encounter [facility], [address] [place] [address] [address], [place], [place], [id number], [place] tel:[phone] SEC Chris BAPTISTE Professional No Information May-0 3-200 0 Jhon Fine. [address] [facility] [address], [place], [place], [id number], [place]. tel:[phone] Family History Family Member Type Diagnosis Age At Onset No Information Payers Payer name Insurance type Covered republican ID Authoriza tion(s) [employer] SOI CI [id number] Social History Type Description Quantity Date Captured [...]
--- OUTSIDE RECORDS SUMMARY | 2024-10-27 18:10 | XMS_ITS | Encounter Summary ---
Author Organization [facility] Address [address] [place] [address] Phone Care Team Providers Care Frame Straightener Name Role Phone Jeremiah Kaur MD Primary Care Provider [phone] Encounter Details Date Type Department Care Team (Late st Contact Info) Description 04/03/2022 Telephone [facility] Scheduling [address] [place], [place] [id number] Ebony Willard Social History Tobacco Use Types Packs/Day Years Used Date Smoking Tobacco: Former Alcohol Use Standard Drinks/Week Comments No 0 (1 standard drink = 0.6 oz pur e alcohol) Comments Unknown Sex and Gender Information Value Date Recorded Sex Assigned at Not on file Legal Sex Female 11:26 AM FUR SORTER Gender Identity Not on file Sexual Orientation Not on file documented as of this encounter Plan of Treatment Not on file documented as of this encounter Visit Diagnoses Not on filedocumented in this encounter Care Teams Frame Straightener Relationship Specialty Start Date End Date Jeremiah Kaur MD [address] [place] [address] PCP - General 12/22/08 documented as of this encounter
--- OUTSIDE RECORDS SUMMARY | 2024-10-27 18:10 | XMS_ITS | Continuity of Care Document ---
Author Organization [facility] Address [address] [place] [address] [address] [place] [address] Phone Care Team Providers Care Casing Blower Name Role Phone Babatunde Ferreira MD Unavailable Unavailable Advance Directives Directive Yes / No Effective Date File Name No Information Encounters Encounter Description Practice Location Reason(s) For Visit Diagnoses Date Provider Providers Copied on Encounter [facility], [address] [place] [address] [address], [place], [place], [id number], [place] tel:[phone] SEC Chris BAPTISTE Professional No Information May-0 3-200 0 Jhon Fine. [address] [facility] [address], [place], [place], [id number], [place]. tel:[phone] Family History Family Member Type Diagnosis Age At Onset No Information Payers Payer name Insurance type Covered libertarian ID Authoriza tion(s) [employer] SOI CI [id number] Social History Type Description Quantity Date Captured [...]
--- OUTSIDE RECORDS SUMMARY | 2024-10-27 18:10 | XMS_ITS | Patient Health Record ---
Author Organization [facility] Address [address] [place] [address] [address] [place] [address] Care Team Providers Care Gas Transfer Operator Name Role Phone Oralia Heller Primary Care Provider Deandre Shultz Unavailable [phone] ALLERGIES Allergen (clinical drug ingredient) Drug/Non Drug Allergy documented on EMR Reaction Allergy Type Onset Date Status morphine Morphine Sulfate hives Drug Allergy Active Sulfacet-R hives Drug Allergy Active REASON FOR REFERRAL No Information MEDICATIONS Medication SIG (Take, Route, Frequency, Duration) Notes Start Date End Date Status Isosorbide Dinitrate ER 40 MG 1 capsule Orally Once a day Active Atorvastatin Calcium 10 MG 1 tablet Oral ly Once a day Active tiZANidine HCl 2 MG 1 tablet as needed Orally Three times a day Active DULoxetine HCl 60 MG 1 capsule Orally On ce a day Active Omeprazole 40 MG 1 capsule Orally Onc e a day Active Zantac 300 MG 1 tablet at bedtime Orally Once a day Active Isosorbide Mononitrate ER 30 MG Oral for 90 Active traZODone HCl 50 MG 1 tablet at bedtime as needed Orally Once a day Active Levothyroxine Sodium 75 MCG 1 tablet on an empty stomach in the morning Orally Once a day Active Propranolol HCl 10 MG 1 tablet on an emp ty stomach Orally Once a day Active Aspirin 81 81 MG 1 tablet Orally Once a day Active amLODIPine Besylate 5 MG 1 tablet Orally Once a day Active SOCIAL HISTORY Tobacco Use: Social History Observation Description Date Details (start date - stop date) Never Smoker NA - NA Sex Assigned At : Social History Observation Description Sex Assigned At Unknown Tobacco Use/Smoking Question Answer Notes Are you a nonsmoker Alcohol Screen (Audit-C) Question Answer Notes Did you have a drink containing alcohol in the p ast year? No Points 0 Interpretation Negative PROBLEMS Problem Type ICD Code Onset Dates Problem Status W/U Status Risk SNOMED Code Notes Problem Kidney calculi (N20.0) Active confirmed Kidney stone (40531656) PLAN OF TREATMENT Pending Test Test Name Order Date X ray : Abdomen, Kidneys, Ureters, and B ladder (KUB) 11/24/2018 X ray : Kidneys, Ureters and Bladder (KU B) 11/19/2018 Urinalysis, Qualit. 08/24/2018 Insurance Providers Payer Name Payer Address Payer Phone Subscriber Number Group Number Insured Name Patient Relationship to Insured Coverage Start Date Coverage End Date Medicare [address] [place] [phone] [id number] Cristy Duckworth Self - patient is the insured 1 [place] Supp 2nd [address] [place] [address] [id number] Cristy Duckworth Self - patient is the insured 1 MEDICAL (GENERAL) HISTORY Medical History History ICD Code arthtis lupus heart disease chronic kindey disease high blood and cholestrol Surgical History Surgery Date(Month/Year) gallbladder 1978 full knee replacement 2014 skin cancer surgery 2016
--- OUTSIDE RECORDS SUMMARY | 2024-10-27 18:10 | XMS_ITS | Continuity of Care Document ---
Author Organization [facility] Address [address] [place] [address] Phone Care Team Providers Care Barrel Planer Name Role Phone Vin BALLARDObed Unavailable Unavailable [...] Diagnoses Date Provider Providers Copied on Encounter [facility], [address] [place] [address], [id number], [place] tel:[phone] [facility] [address] Other vitreous opacities, bilateralPresence of intraocular lensTear film insufficiency of bilateral lacrimal glands 9 Vin Clay. [address] [place] [address], [id number] , [place]. tel:[phone] Referring Provider: Obed Patel, [address] [place] [address], [address] . tel:[phone] Family History Family Member Type Diagnosis Age At Onset Mother Problem (finding) malignant neop lasm of breast in first degree relative Payers Payer name Insurance type Covered republican ID Authoriza tion(s) [place] MB [id number] [facility] [id number] Social History Type Description Quantity Date Captured [...]
--- OUTSIDE RECORDS SUMMARY | 2024-10-27 18:10 | XMS_ITS | Referral Summary ---
Author Organization [facility] Address [address] [place] [address] Care Team Providers Care Data Processing Specialist Name Role Phone Jeremiah Kaur MD Primary Care Provider Encounters Date Type Department Care Team Description 08/01/2024 2:57 PM CDT - 08/01/2024 11:59 PM CDT Hospital Encounter [facility] [address] [place] [address] Closed fracture of left hip, initial encounter ([facility]) Discharge Disposition: Discharge to home or self care 08/01/2024 3:30 PM CDT Office Visit [facility] Orthopaedic Surgery [address] [place] [address] Advanced [facility] [address] [place] [address] [place] [address] Lavon Dawkins MD Closed fracture of left [...] 1 tablet (75 mcg total) by mouth operater before breakfast Active tiZANidine (ZANAFLEX) 4 mg [...] on 07/25/[address] Dawkins located at [facility] - Bone [facility] referral at discharge Systolic murmur 03/03/2024 [...] OD. Assessment & Plan (10/23/2023 3:53 PM PETAL CUTTER): Educated pt, [facility] slightly improved OD compared [...] 04/02/2023 Assessment & Plan (10/23/2023 3:36 PM PETAL CUTTER): Monitor. Assessment & Plan (04/02/2023 4:04 PM CDT): Clear and centered, monitor. Primary parkinsonism 08/24/2021 Assessment & Plan (11/29/2021 4:50 PM PETAL CUTTER): ?? Start carbidopa-levodopa 25-100 TID; OK to refuse if patient endorses side effects (dizziness, nausea, hypotension) ?? Can consider amantadine as a second line agent ?? Physical therapy for gait and balance training, transfers, 2 times per week; to be timed 1-2 hours after Sinemet administration Assessment & Plan (08/24/2021 8:25 AM PETAL CUTTER): Idiopathic Parkinson disease ?? She will discuss [...] evaluation today) Angina pectoris with documented spasm ([facility]) 02/11/2021 Crohn's disease, unspecified, with rectal bleedi [...] MALAISE AND FATIGUE NEC Systemic lupus erythematosus ([facility]) 4 Overview (01/09/2017): SYST LUPUS ERYTHEMATOSUS Rheumatoid arthritis 02/18/2014 Overview (01/09/2017): RHEUMATOID ARTHRITIS Assessment & Plan (06/15/2024 2:04 PM CDT): #Polymyalgia rheumatica - chronic bilateral shoulder and knee pain - continue home prednisone and sulfasalazine History of substance abuse ([facility]) 02/18/2014 Overview (01/09/2017): HISTORY OF TOBACCO USE [...] on file Legal Sex Female 11:26 AM PETAL CUTTER Gender Identity Not on file Sexual Orientation [...] on file Medical Devices Implanted Type Area Associate Principal Device Identifier Shelf Expiration Date Model / Serial / Lot Synthes Tfn-Advanced Lateral Relief Cut 11mm 400mm Cannulated Femoral 04.037.161s - [id number] Implanted:Qty: 1 on 06/15/2024 by Lavon Dawkins MD at [facility] Left: Femur Synthes I [id number] 03/04/2034 04.037.161 S / / [id number] Synthes Tfn-Advanced 10.35mm 80mm Cannulated 3.5mm Screw Bone [id number] 04.038.180s - [id number] Implanted:Qty: 1 on 06/15/2024 by Lavon Dawkins MD at [facility] Synthes I 04.038.180 S / / Synthes Screw Bone Locking Cannulated Femoral Proximal Full Thread Light Green 5.0x42mm Titanium 04.045.042 - [id number] Implanted:Qty: 1 on 06/15/2024 by Lavon Dawkins MD at [facility] Synthes I 04.045.042 / / Synthes Screw Bone Locking Cannulated Femoral Proximal Full Thread Light Green 5.0x38mm Titanium 04.045.038 - [id number] Implanted:Qty: 1 on 06/15/2024 by Lavon Dawkins MD at [facility] Synthes I 04.045.038 / / [...] Last 3 Months Insurance MEDICARE MEDICARE MEDICARE [facility] Advance Directives For more information, please contact: [phone] * Full Code (Latest Code Status on File) Date Activated Date Inactivated Comments 06/15/2024 4:09 PM 06/22/2024 7:39 PM * Full Code Date Activated Date Inactivated Comments 06/15/2024 12:13 AM 06/15/2024 4:09 PM Care Teams Data Processing Specialist Relationship Specialty Start Date End Date Jeremiah Kaur MD [address] [place] [address] PCP - General 12/22/08
--- OUTSIDE RECORDS SUMMARY | 2024-10-27 18:10 | XMS_ITS | Clinical Summary ---
Author Organization [facility] Address [address] [place] [id number] Care Team Providers Care Carbonation Equipment Tender Name Role Phone Jeremiah Kaur MD Primary Care Provider [phone] Allergies Active Allergy Reactions Criticality Noted Date [...] 1 tablet (75 mcg total) by mouth rn gastroenterology before breakfast Active tiZANidine (ZANAFLEX) 4 mg [...] with Dr. Dawkins located at [facility] referral at discharge Systolic murmur 03/03/2024 [...] OD. Assessment & Plan (10/23/2023 3:53 PM SUPERVISOR CURING ROOM): Educated pt, VA slightly improved OD compared [...] 04/02/2023 Assessment & Plan (10/23/2023 3:36 PM SUPERVISOR CURING ROOM): Monitor. Assessment & Plan (04/02/2023 4:04 PM CDT): Clear and centered, monitor. Primary parkinsonism 08/24/2021 Assessment & Plan (11/29/2021 4:50 PM SUPERVISOR CURING ROOM): ?? Start carbidopa-levodopa 25-100 TID; OK to refuse if patient endorses side effects (dizziness, nausea, hypotension) ?? Can consider amantadine as a second line agent ?? Physical therapy for gait and balance training, transfers, 2 times per week; to be timed 1-2 hours after Sinemet administration Assessment & Plan (08/24/2021 8:25 AM SUPERVISOR CURING ROOM): Idiopathic Parkinson disease ?? She will discuss [...] evaluation today) Angina pectoris with documented spasm ([facility]) 02/11/2021 Crohn's disease, unspecified, with rectal [...] MALAISE AND FATIGUE [facility] Systemic lupus erythematosus ([facility]) 4 Overview (01/09/2017): SYST LUPUS ERYTHEMATOSUS Rheumatoid arthritis 02/18/2014 Overview (01/09/2017): RHEUMATOID ARTHRITIS Assessment & Plan (06/15/2024 2:04 PM CDT): #Polymyalgia rheumatica - chronic bilateral shoulder and knee pain - continue home prednisone and sulfasalazine History of substance abuse ([facility]) 02/18/2014 Overview (01/09/2017): HISTORY OF TOBACCO USE Asthma 02/18/2014 Overview (01/09/2017): ASTHMA NOS Drug indicated 08/17/2012 Overview (01/09/2017): LONG-TERM USE MEDS NEC Encounters Date Type Department Care Team Description 08/01/2024 3:30 PM CDT Office Visit [facility] Orthopaedic Surgery [address] [facility] 6[address] [place] [address] [place] [address] Lavon Dawkins MD Closed fracture of left hip, initial encounter ([facility]) (Primary Dx) 08/01/2024 2:57 PM CDT - 08/01/2024 11:59 PM CDT Hospital Encounter [facility] [address] [place] [id number] Closed fracture of left hip, initial encounter ([facility]) Discharge Disposition: Discharge to home or [...] - Hx Other Medical gallbladder; Co mments: [facility] 12/13/2014 - Hx Other Medical synovial plica repair 1987; Comments: [facility] 12/13/2014 - Hx Other Medical left knee cap r epoistion 1988; Comments: [facility] 12/13/2014 - Hx Other Medical Cervicle fusion 1997; Comments: [facility] 12/13/2014 - Hx Other Medical Lumbar Diskecto my 2000; Comments: [facility] 12/13/2014 - Hx Other Medical Lumbar Diskecto my 2001; Comments: [facility] 12/13/2014 - Epiretinal membrane (ERM), bilateral Family [...] on file Legal Sex Female 11:26 AM SUPERVISOR CURING ROOM Gender Identity Not on file Sexual Orientation [...] 06/22/2025 06/22/2024 Medical Devices Implanted Type Area Train Planner Device Identifier Shelf Expiration Date Model / Serial / Lot Synthes Tfn-Advanced Lateral Relief Cut 11mm 400mm Cannulated Femoral 04.037.161s - [id number] Implanted:Qty: 1 on 06/15/2024 by Lavon Dawkins MD at [facility] Left: Femur Synthes I [id number] 03/04/2034 04.037.161 S / / [id number] Synthes Tfn-Advanced 10.35mm 80mm Cannulated 3.5mm Screw Bone [id number] 04.038.180s - [id number] Implanted:Qty: 1 on 06/15/2024 by Lavon Dawkins MD at [facility] Synthes I 04.038.180 S / / Synthes Screw Bone Locking Cannulated Femoral Proximal Full Thread Light Green 5.0x42mm Titanium 04.045.042 - [id number] Implanted:Qty: 1 on 06/15/2024 by Lavon Dawkins MD at [facility] Synthes I 04.045.042 / / Synthes Screw Bone Locking Cannulated Femoral Proximal Full Thread Light Green 5.0x38mm Titanium 04.045.038 - [id number] Implanted:Qty: 1 on 06/15/2024 by Lavon Dawkins MD at [facility] Synthes I 04.045.038 / / Procedures Procedure [...] Advance Directives For more information, please contact: [phone] * Full Code (Latest Code Status on File) Date Activated Date Inactivated Comments 06/15/2024 4:09 PM 06/22/2024 7:39 PM * Full Code Date Activated Date Inactivated Comments 06/15/2024 12:13 AM 06/15/2024 4:09 PM Care Teams Carbonation Equipment Tender Relationship Specialty Start Date End Date Jeremiah Kaur MD [address] [place] [id number] PCP - General 12/22/08
--- NOTE | 2024-10-31 09:15 | PC.NURSE ---
Discharge back to [facility], hospice continues, no questions from [facility] or hospice staff
== END 2024-10-26 14:30 | DRG 951 ==
PROVIDERS: Admitting Provider Internal Medicine; PCP Family Medicine; Visit Provider Nurse Practitioner Acute Care
DX: Z51.5 Encounter for palliative care (principal); A41.9 Sepsis, unspecified organism; I26.99 Other pulmonary embolism without acute cor pulmonale; J18.9 Pneumonia, unspecified organism; J96.01 Acute respiratory failure with hypoxia; G20.A1 Parkinson's disease without dyskinesia, without mention of fluctuations; M35.3 Polymyalgia rheumatica; W05.0XXD Fall from non-moving wheelchair, subsequent encounter; S72.001D Fracture of unspecified part of neck of right femur, subsequent encounter for closed fracture with routine healing; Z91.81 History of falling
CPT/HCPCS: A9270; J1171; J2060